=== PATIENT | female | born 1955 | race Caucasian/White ===

== ENCOUNTER 2016-09-27 10:06 | Emergency (ER) | payer MEDICARE, OTHER ==
[~2016-09-27] VITALS: Ht 152.4 cm; Wt 76.5 kg
[~2016-09-27 10:06] MED LIST: ALBU8.5H3 INH; ASPI1TAB30 PO; BECL8.7A IH; CALC600T11 PO; FEXO180T61 PO; GABA300C16 PO; HYDR-762 PO; HYDR-906 PO; IBUP-1542 PO; MET25 PO; OMEP20CA16 PO; ONDA4TAB35 PO; ONDA4TAB8 PO
[2016-09-27 10:17] VITALS: Ht 152.4 cm; Wt 76.5 kg
--- NOTE | 2016-09-27 11:59 | ERD ---
ER Documentation Chief Complaint Date/Time DATE: 09/27/16 TIME: 11:56 Chief Complaint PT with VB X 2 days and VICKERS X 2 weeks. HPI Patient is a 61-year-old female with a past medical history of arthritis who presents to the ED with 2 days of vaginal bleeding and headache for 3 weeks. She states that her headache is something she has experienced in the past, it is not a new onset headache. She states that the pain comes and goes and it is not the worst headache of her life. She denies blurry vision or difficulty hearing. She states that she has had multiple surgeries on both of her ears. She denies neck pain or neck stiffness. She denies fever or chills. She denies abdominal pain, nausea, vomiting or diarrhea. She also states that she has had left-sided pelvic pain for 2 days, on Tuesday and Tuesday with no pain or no bleeding today. She states that she has had her uterus and a one side of her ovaries removed, 24 years ago. She states that she has not had vaginal bleeding. She denies dysuria. No other complaints. ROS All systems reviewed and are negative except as per history of present illness. Medications Home Meds Active Scripts Nitrofurantoin Monohyd Macrocr* (Macrobid*) 100 Mg Capsr, 100 MG PO BID for 14 Days, CAP Prov:MARCEL GARNER PA-C 09/27/16 Aspirin/Acetaminophen/Caffeine (Excedrin Migraine Caplet) 1 Each Tablet, 1 EACH PO TID, #30 TAB Prov:MARCELINO JACOME PA-C 03/08/16 Ondansetron Hcl* (Zofran* ODT) 4 mg -ODT Tab.disper, 4 MG PO Q6H Y for NAUSEA, # 10 TAB Prov:SHAMEKA BENJAMIN MD 12/01/15 Hydrocodone Bit-Acetaminophen ([place]) 5-325 Mg Tablet, 1 TAB PO Q6 Y for PAIN, # 10 TAB Prov:SHAMEKA BENJAMIN MD 12/01/15 Hydrocodone Bit-Acetaminophen* ([place]*) 10-325 Mg Tablet, 1 TAB PO Q6 Y for PAIN , #12 TAB Prov:LISA DELGADO MD 11/25/15 Fexofenadine Hcl* ([place]*) 180 Mg Tablet, 180 MG PO DAILY, #30 TAB Prov:AMRIT SLATER MD 10/27/15 Ondansetron Hcl* (Zofran*) 4 Mg Tablet, 4 MG PO Q6H for NAUSEA AND/OR VOMITING, #30 TAB Prov:GRAY LOREDO 04/15/15 Reported Medications Calcium Carbonate* (Calcium Carbonate*) 600 MG Ca Tab, 600 MG PO DAILY, TAB 04/15/15 Albuterol Sulfate* (Proair HFA*) 8.5 Gm Hfa.aer.ad, 2 PUFF INH Q4H Y for WHEEZING AND SOB, INH 04/15/15 Methotrexate* (Methotrexate*) 2.5 Mg Tab, 15 MG PO every 7 days, TAB 04/15/15 Omeprazole* (Omeprazole*) 20 Mg Capsule.dr, 20 MG PO DAILY, CAP 04/15/15 Gabapentin* (Gabapentin*) 300 Mg Capsule, 300 MG PO TID, CAP 04/15/15 Beclomethasone Dip* (Qvar 40*) 7.3 Gm Inha, 7.3 GM IH Y 01/13/12 Ibuprofen* (Ibuprofen*) 600 Mg Tablet, 600 MG PO Y 01/13/12 Allergies Allergies: Coded Allergies: ranitidine (Verified Allergy, Unknown, 03/08/16) PMhx/Soc History of Surgery: Yes (ALESSANDRA HIP REP.TAHBSO, APPENDECTOMY, gallbladder, eye surgery, ear surgery) Anesthesia Reaction: No Hx Neurological Disorder: No Hx Respiratory Disorders: No Hx Cardiac Disorders: No Hx Psychiatric Problems: No Hx Miscellaneous Medical Probl: No Hx Alcohol Use: No Hx Substance Use: No Hx Tobacco Use: No FmHx Family History: No coronary disease, No diabetes, No other Physical Exam Vitals Vital Signs Date Time Temp Pulse Resp B/P Pulse Ox O2 Delivery O2 Flow Rate FiO2 09/27/16 13:18 77 18 139/72 97 Room Air 09/27/16 10:17 97.4 86 20 120/62 100 Physical Exam GENERAL: Well-developed, well-nourished female. Appears in no acute distress. HEAD: Normocephalic, atraumatic. EYES: Pupils are equally reactive bilaterally. EOMs grossly intact. No conjunctival erythema. ENT: Moist mucous membranes. No uvula deviation. No kissing tonsils. No exudates. NECK: Supple. No lymphadenopathy or thyromegaly. No meningismus. negative kernig. negative brudinski. LUNG: Clear to auscultation bilaterally. No rhonchi, wheezing, rales or coarse breath sounds. HEART: Regular rate and rhythm. No murmurs, rubs or gallops. ABDOMEN: No scars, ecchymosis or rashes noted. Soft, nontender, and nondistended. Positive bowel sounds in all four quadrants. No rebound tenderness , no guarding. (-) McBurneys point tenderness. No CVA tenderness. Slight left- sided pelvic pain. BACK: No midline tenderness. Extremities: Equal pulses bilaterally. No peripheral clubbing, cyanosis or edema. No unilateral leg swelling. NEUROLOGIC: Alert and oriented. Moving all four extremities. 5/5 strength in all extremities. Normal speech. Steady gait. Cranial nerves II through XII intact. SKIN: Normal color. Warm and dry. No rashes or lesions. Capillary refill < 2 seconds Result Diagram: 09/27/16 1215 09/27/16 1215 Results 24 hrs Laboratory Tests Test 09/27/16 12:15 09/27/16 12:50 White Blood Count 6.410^3/ul Red Blood Count 4.1910^6/ul Hemoglobin 11.2g/dl Hematocrit 35.9% Mean Corpuscular Volume 85.7fl Mean Corpuscular Hemoglobin 26.7pg Mean Corpuscular Hemoglobin Concent 31.2g/dl Red Cell Distribution Width 13.6% Platelet Count 76513^3/UL Mean Platelet Volume 10.4fl Neutrophils % 29.8% Lymphocytes % 47.6% Monocytes % 12.9% Eosinophils % 8.9% Basophils % 0.5% Nucleated Red Blood Cells % 0.0/100WBC Neutrophils # 1.910^3/ul Lymphocytes # 3.110^3/ul Monocytes # 0.810^3/ul Eosinophils # 0.610^3/ul Basophils # 0.010^3/ul Nucleated Red Blood Cells # 0.010^3/ul Sodium Level 143mmol/L Potassium Level 4.0mmol/L Chloride Level 109mmol/L Carbon Dioxide Level 23mmol/L Anion Gap 15 Blood Urea Nitrogen 11mg/dl Creatinine 0.64mg/dl Glucose Level 97mg/dl Calcium Level 9.1mg/dl Total Bilirubin 0.1mg/dl Direct Bilirubin 0.00mg/dl Indirect Bilirubin 0.1mg/dl Aspartate Amino Transf (AST/SGOT) 34IU/L Alanine Aminotransferase (ALT/SGPT) 42IU/L Alkaline Phosphatase 117IU/L Total Protein 8.0g/dl Albumin 4.2g/dl Globulin 3.80g/dl Albumin/Globulin Ratio 1.10 Lipase 46U/L Bedside Urine pH (LAB) 7.0 Bedside Urine Protein (LAB) Negative Bedside Urine Glucose (UA) Negative Bedside Urine Ketones (LAB) Negative Bedside Urine Blood 1+ Bedside Urine Nitrite (LAB) Negative Bedside Urine Leukocyte Esterase (L 1+ Current Medications Medications (Trade) Dose Ordered Sig/Tayla Route PRN Reason Start Time Stop Time Status Last Admin Dose Admin Acetaminophen (Tylenol Tab) 650 mg ONCE ONCE PO 09/27/16 12:00 09/27/16 12:01 DC 09/27/16 12:09 Procedures/MDM ER COURSE: I kept the patient and/or family informed of laboratory and diagnostic imaging results throughout the emergency room course. EKG, MONITORS, & DIAGNOSTIC IMAGING: [place] [id number] Radiology Main Line: [phone] DIAGNOSTIC IMAGING REPORT Patient: TRACY GOMES : 1955 Age: 61 Sex: F MR #: [id number] DOS: 09/27/16 1140 Ordering MD: MARCEL GARNER PA-C Location: [facility] Room/Bed: PROCEDURE: US Pelvis. CLINICAL INDICATION: pelvic pain , vaginal bleeding TECHNIQUE: Multiple sonographic images of the pelvis were obtained utilizing a transabdominal and endovaginal technique. The images were reviewed on a PACS workstation. COMPARISON: None. FINDINGS: The patient is status post hysterectomy. The ovaries were not visualized. There is no evidence for free fluid. RPTAT: AA IMPRESSION: Status post hysterectomy. Ovaries not visualized. No free fluid. .Franky Leblanc MD, MD Date Time Electronically viewed and signed by .Franky Leblanc MD, on 09/27/2016 12: 17 .S/ CC: MARCEL GARNER PA-C LAB INTERPRETATION: CBC showed no evidence of systemic infection or severe anemia. CMP showed no evidence of electrolyte abnormalities, severe acidosis, alkalosis, renal failure , or liver disease. Lipase showed no evidence of acute pancreatitis. UA showed no evidence of leukocytes, nitrites or hematuria. Urine test was negative. MEDICAL DECISION MAKING: This is a 61-year-old female who presents with headache for 3 weeks and 2 days of vaginal bleeding. Vital signs were reviewed. Patient is afebrile. Patient is not hypoxic. Patient is not toxic or ill-appearing. I do not think further workup regarding patient's headache were necessary at this time as patient does have a chronic headaches and states that this is not the worst headache of her life and stated that the pain came on gradually and comes and goes and is usually relieved with Excedrin. Tylenol was given here in the ED. Patient tolerated with no adverse reaction. Patient did not have any vaginal bleeding today in the ED and was hemodynamically stable. Her ultrasound is read by radiologist was unremarkable. Low suspicion for ectopic , , molar , endometriosis, PID, cervicitis, septic , molar , HELLP syndrome, I did not think a CAT scan was necessary at this time as patient did not have any abdominal pain and was stable. Advised patient to follow-up with a hourly sales staff for further evaluation. DISCHARGE: At this time, patient is stable for discharge and outpatient management with no new complaints during the ER course. Patient was sent home with copy of all imaging and laboratory studies and a name of hourly sales staff.. Patient will be discharged home with instructions to recheck for new or worsening symptoms such as fever, nausea, weakness, LOC and to follow up with primary care in the next 1 -2 days. Patient was advised to return to the ER for any new or worsening symptoms. Plan was discussed and patient and/or family understands and agrees. Home instructions were given. Departure Diagnosis: Primary Impression: Headache Headache type: unspecified Headache chronicity pattern: chronic headache Intractability: not intractable Qualified Code: R51 - Chronic nonintractable headache, unspecified headache type Additional Impression: Vaginal bleeding Condition: Stable MARCEL GARNER PA-C September 27, 2016 11:59
[2016-09-27] MEDS ORDERED: ACETAMINOPHEN 325 MG TAB PO ONE (12:00)
--- NOTE | 2016-09-27 12:18 | RADRPT ---
PROCEDURE: US Pelvis. CLINICAL INDICATION: pelvic pain , vaginal bleeding TECHNIQUE: Multiple sonographic images of the pelvis were obtained utilizing a transabdominal and endovaginal technique. The images were reviewed on a PACS workstation. COMPARISON: None. FINDINGS: The patient is status post hysterectomy. The ovaries were not visualized. There is no evidence for free fluid. RPTAT: AA IMPRESSION: Status post hysterectomy. Ovaries not visualized. No free fluid. .Franky Leblanc MD, MD Date Time Electronically viewed and signed by .Franky Leblanc MD, MD on 09/27/2016 12:17 .S/
[2016-09-27 12:25] LABS: ADD SCAN DIFF NO
[2016-09-27 12:30] LABS: BASOPHILS % 0.5 % (0.0-2.0); EOSINOPHILS # 0.6 10^3/ul (0.0-0.5); EOSINOPHILS % 8.9 % (0.0-7.0); HEMATOCRIT 35.9 % (37.0-47.0); HEMOGLOBIN 11.2 g/dl (12.0-16.0); LYMPHOCYTES # 3.1 10^3/ul (0.8-2.9); LYMPHOCYTES % 47.6 % (15.0-51.0); MEAN CORPUSCULAR HEMOGLOBIN 26.7 pg (29.0-33.0); MEAN CORPUSCULAR HGB CONC 31.2 g/dl (32.0-37.0); MEAN CORPUSCULAR VOLUME 85.7 fl (82.0-101.0); MEAN PLATELET VOLUME 10.4 fl (7.4-10.4); MONOCYTE # 0.8 10^3/ul (0.3-0.9); MONOCYTES % 12.9 % (0.0-11.0); NEUTROPHIL # 1.9 10^3/ul (1.6-7.5); NEUTROPHILS % 29.8 % (39.0-77.0); PLATELET COUNT 249 10^3/UL (140-415); RED BLOOD COUNT 4.19 10^6/ul (4.20-5.40); RED CELL DISTRIBUTION WIDTH 13.6 % (11.5-14.5); WHITE BLOOD COUNT 6.4 10^3/ul (4.8-10.8)
[2016-09-27 12:46] LABS: ALBUMIN 4.2 g/dl (3.3-4.9)
[2016-09-27 12:48] LABS: URINE BLOOD (Dip) POC 1+ (NEGATIVE)
[2016-09-27 12:49] LABS: ALBUMIN/GLOBULIN RATIO 1.1; BILIRUBIN,INDIRECT 0.1 mg/dl (0-1.1); BILIRUBIN,TOTAL 0.1 mg/dl (0.2-1.3); CALCIUM 9.1 mg/dl (8.4-10.2); CREATININE 0.64 mg/dl (0.44-1.00)
[2016-09-27] MEDS ORDERED: NITR-58 PO (13:08)
[2016-09-27 13:18] VITALS: BP 139/72; PULSE 77; RESP 18
== END 2016-09-27 13:19 | disposition home or self-care (01) ==
LOC: FTE 10:06
DX: R51 Headache (principal); Z79.82 Long term (current) use of aspirin
CPT/HCPCS: 76830; 76856; 80053; 81003; 83690; 85025

== ENCOUNTER 2016-11-19 10:03 | Emergency (ER) | payer MEDICARE, OTHER ==
[~2016-11-19] VITALS: Ht 160 cm; Wt 75.5 kg
[~2016-11-19 10:03] MED LIST changes: +NITR-58 PO
[2016-11-19 10:14] VITALS: Ht 160 cm; Wt 75.5 kg
--- NOTE | 2016-11-19 12:18 | RADRPT ---
PROCEDURE: XR Hand. CLINICAL INDICATION: hand pain s/p fall TECHNIQUE: AP and lateral views of the right hand were obtained. COMPARISON: No prior studies are available for comparison. FINDINGS: The films are underpenetrated. This cyst or erosion is suspected slightly blunting the right ulnar styloid process. No acute bony fracture is identified. Slight changes in contour along the proximal portions of the right third and fourth metacarpal bones are believed to be normal. IMPRESSION: 1. No acute bony fracture is identified. 2. Bone cyst or erosive changes involving the right ulnar styloid process. RPTAT:AAJJ Physician Ida Date Time Electronically viewed and signed by Physician Ida on 11/19/2016 12:18 KELVIN/
--- NOTE | 2016-11-19 12:19 | RADRPT ---
PROCEDURE: XR Wrist. CLINICAL INDICATION: Trauma. TECHNIQUE: AP, lateral, navicular and oblique views of the right wrist were performed. COMPARISON: No prior studies are available for comparison. FINDINGS: There is some erosive changes involving the right ulnar styloid process. The carpal bones and metac arpal bones appear intact. There is a slight contour change noted at the level of the proximal meta diaphysis of the right third metacarpal bone. This is likely normal. If there is point tenderness at this site additional coned-down views may be indicated. IMPRESSION: 1. No acute bony fracture is identified. 2. Erosive changes involving the right ulnar styloid process. RPTAT:AAJJ Physician Ida Date Time Electronically viewed and signed by Ki Campbell Physician on 11/19/2016 12:19 KELVIN/
--- NOTE | 2016-11-19 12:20 | RADRPT ---
PROCEDURE: XR Forearm. CLINICAL INDICATION: Pain after a fall. TECHNIQUE: AP and lateral views of the right forearm were obtained. COMPARISON: No prior studies are available for comparison. FINDINGS: The soft tissues and bony elements are unremarkable. No acute fracture or dislocation is identified . IMPRESSION: 1. No evidence of a fracture involving the right radius or ulna. RPTAT:AAJJ Physician Ida Date Time Electronically viewed and signed by Ki Campbell Physician on 11/19/2016 12:20 KELVIN/
[2016-11-19] MEDS ORDERED: IBUP-1542 PO (12:51)
--- NOTE | 2016-11-19 13:02 | ERD ---
ER Documentation Chief Complaint Date/Time DATE: 11/19/16 TIME: 12:54 Chief Complaint 12/23 r. arm pain x 1 week after fall HPI Patient is a 61-year-old female past medical history of osteoarthritis who presents to the emergency department with right wrist and hand pain after a ground-level fall 1 week ago. Patient denies any dizziness or syncopal feelings prior to fall injury. Patient states that she was walking the street when she apparently had flulike injury. Patient denies any radiation of the pain up into her shoulder. Patient denies any chest pain, shortness of breath, left upper extremity pain, diaphoresis, nausea, vomiting, headache or blurry vision. Patient is speaking in full sentences. Patient is able to ambulate without any difficulty. She is right-hand dominant. Patient does report history of previous wrist fracture. ROS All systems reviewed and are negative except as per history of present illness. Medications Home Meds Active Scripts Ibuprofen* (Motrin*) 600 Mg Tab, 600 MG PO Q6, #20 TAB Prov:HARRY GIL PA-C 11/19/16 Nitrofurantoin Monohyd Macrocr* (Macrobid*) 100 Mg Capsr, 100 MG PO BID for 14 Days, CAP Prov:MARCEL GARNER PA-C 09/27/16 Aspirin/Acetaminophen/Caffeine (Excedrin Migraine Caplet) 1 Each Tablet, 1 EACH PO TID, #30 TAB Prov:MARCELINO JACOME PA-C 03/08/16 Ondansetron Hcl* (Zofran* ODT) 4 mg -ODT Tab.disper, 4 MG PO Q6H Y for NAUSEA, # 10 TAB Prov:SHAMEKA BENJAMIN MD 12/01/15 Hydrocodone Bit-Acetaminophen ([place]) 5-325 Mg Tablet, 1 TAB PO Q6 Y for PAIN, # 10 TAB Prov:SHAMEKA BENJAMIN MD 12/01/15 Hydrocodone Bit-Acetaminophen* ([place]*) 10-325 Mg Tablet, 1 TAB PO Q6 Y for PAIN , #12 TAB Prov:LISA DELGADO MD 11/25/15 Fexofenadine Hcl* ([place]*) 180 Mg Tablet, 180 MG PO DAILY, #30 TAB Prov:AMRIT SLATER MD 10/27/15 Ondansetron Hcl* (Zofran*) 4 Mg Tablet, 4 MG PO Q6H for NAUSEA AND/OR VOMITING, #30 TAB Prov:GRAY LOREDO 04/15/15 Reported Medications Calcium Carbonate* (Calcium Carbonate*) 600 MG Ca Tab, 600 MG PO DAILY, TAB 04/15/15 Albuterol Sulfate* (Proair HFA*) 8.5 Gm Hfa.aer.ad, 2 PUFF INH Q4H Y for WHEEZING AND SOB, INH 04/15/15 Methotrexate* (Methotrexate*) 2.5 Mg Tab, 15 MG PO every 7 days, TAB 04/15/15 Omeprazole* (Omeprazole*) 20 Mg Capsule.dr, 20 MG PO DAILY, CAP 04/15/15 Gabapentin* (Gabapentin*) 300 Mg Capsule, 300 MG PO TID, CAP 04/15/15 Beclomethasone Dip* (Qvar 40*) 7.3 Gm Inha, 7.3 GM IH Y 01/13/12 Ibuprofen* (Ibuprofen*) 600 Mg Tablet, 600 MG PO Y 01/13/12 Allergies Allergies: Coded Allergies: ranitidine (Verified Allergy, Unknown, 11/19/16) PMhx/Soc History of Surgery: Yes (ALESSANDRA HIP REP.TAHBSO, APPENDECTOMY, gallbladder, eye surgery, ear surgery) Anesthesia Reaction: No Hx Neurological Disorder: No Hx Respiratory Disorders: No Hx Cardiac Disorders: No Hx Psychiatric Problems: No Hx Miscellaneous Medical Probl: Yes (Arthritis) Hx Alcohol Use: No Hx Substance Use: No Hx Tobacco Use: No Smoking Status: Never smoker FmHx Family History: No diabetes Physical Exam Vitals Vital Signs Date Time Temp Pulse Resp B/P Pulse Ox O2 Delivery O2 Flow Rate FiO2 11/19/16 13:19 98.5 70 18 110/64 98 Room Air 11/19/16 10:14 98.5 80 18 108/64 98 Physical Exam GENERAL: Well-developed, well-nourished female. Appears in no acute distress. Speaking in full sentences HEAD: Normocephalic, atraumatic. EYES: Pupils are equally reactive bilaterally. EOMs grossly intact. No conjunctival erythema. ENT: Moist mucous membranes. No uvula deviation. No kissing tonsils. NECK: Supple. No meningismus. Normal range of motion of the neck. LUNG: Clear to auscultation bilaterally. No rhonchi, wheezing, rales or coarse breath sounds. HEART: Regular rate and rhythm. No murmurs, rubs or gallops. EXTREMITIES: Equal pulses bilaterally. No peripheral clubbing, cyanosis or edema. No unilateral leg swelling. NEUROLOGIC: Alert and oriented. Moving all four extremities without any difficulty. Normal speech. Steady gait. SKIN: Normal color. Warm and dry. No rashes or lesions. RIGHT WRIST: No erythema, ecchymosis or swelling. Skin intact. Full range of motion of the wrist and elbow. Patient able to pronate and supinate without any difficulty. Nontender to palpation of the elbow, proximal radius and ulna. Tender to palpation of the mid forearm, radial wrist. +Finger deformities consistent OA. Sensation intact to light touch. Neurovascularly intact. (Able to give thumbs up, make an ok sign, cross digits 2 and 3, thumb to pinky opposition. 2+ RP.) No snuffbox tenderness. Results 24 hrs Current Medications Medications (Trade) Dose Ordered Sig/Tayla Route PRN Reason Start Time Stop Time Status Last Admin Dose Admin Ibuprofen (Motrin) 600 mg ONCE ONCE PO 11/19/16 13:30 11/19/16 13:31 DC 11/19/16 13:10 Procedures/MDM ED COURSE: The patient was stable throughout ED course. I kept the patient and/or family informed of laboratory and diagnostic imaging results throughout the ED course. DIAGNOSTIC IMAGING: Read by radiologist. DIAGNOSTIC IMAGING REPORT Patient: TRACY GOMES : 1955 Age: 61 Sex: F MR #: [id number] DOS: 11/19/16 1110 Ordering MD: HARRY GIL PA-C Location: [facility] Room/Bed: PROCEDURE: XR Hand. CLINICAL INDICATION: hand pain s/p fall TECHNIQUE: AP and lateral views of the right hand were obtained. COMPARISON: No prior studies are available for comparison. FINDINGS: The films are underpenetrated. This cyst or erosion is suspected slightly blunting the right ulnar styloid process. No acute bony fracture is identified. Slight changes in contour along the proximal portions of the right third and fourth metacarpal bones are believed to be normal. IMPRESSION: 1. No acute bony fracture is identified. 2. Bone cyst or erosive changes involving the right ulnar styloid process. RPTAT:AAJJ Ki Campbell, Physician Date Time Electronically viewed and signed by Ki Campbell Physician on 11/19/2016 12:18 JM/ CC: HARRY GIL PA-C Radiology Main Line: [phone] DIAGNOSTIC IMAGING REPORT Patient: TRACY GOMES : 1955 Age: 61 Sex: F MR #: [id number] DOS: 11/19/16 1106 Ordering MD: HARRY GIL PA-C Location: [facility] Room/Bed: PROCEDURE: XR Wrist. CLINICAL INDICATION: Trauma. TECHNIQUE: AP, lateral, navicular and oblique views of the right wrist were performed. COMPARISON: No prior studies are available for comparison. FINDINGS: There is some erosive changes involving the right ulnar styloid process. The carpal bones and metacarpal bones appear intact. There is a slight contour change noted at the level of the proximal metadiaphysis of the right third metacarpal bone. This is likely normal. If there is point tenderness at this site additional coned-down views may be indicated. IMPRESSION: 1. No acute bony fracture is identified. 2. Erosive changes involving the right ulnar styloid process. RPTAT:AAJJ Ki Campbell Physician Date Time Electronically viewed and signed by Ki Campbell Physician on 11/19/2016 12:19 KELVIN/ CC: HARRY GIL PA-C DIAGNOSTIC IMAGING REPORT Patient: TRACY GOEMS : 1955 Age: 61 Sex: F MR #: [id number] DOS: 11/19/16 1106 Ordering MD: HARRY GIL PA-C Location: [facility] Room/Bed: PROCEDURE: XR Forearm. CLINICAL INDICATION: Pain after a fall. TECHNIQUE: AP and lateral views of the right forearm were obtained. COMPARISON: No prior studies are available for comparison. FINDINGS: The soft tissues and bony elements are unremarkable. No acute fracture or dislocation is identified. IMPRESSION: 1. No evidence of a fracture involving the right radius or ulna. RPTAT:AAJJ Physician Ida Date Time Electronically viewed and signed by Physician Ida on 11/19/2016 12:20 JM/ CC: HARRY GIL PA-C PROCEDURES: SPLINT APPLICATION: The patient was verbally consented at bedside prior to splint application. Patient was explained the risks, benefits and alternatives to this procedure. The patient was neurovascularly intact prior to and status post application of the splint. The patient tolerated the procedure well with no complications. Splint type: velcro wrist splint Extremity: right wrist Indication: wrist sprain MEDICATIONS GIVEN: Ibuprofen MEDICAL DECISION MAKING: This is a 61-year-old female who presents with right wrist pain after a ground- level fall. Patient reports fusion injury. Vital signs were reviewed. Patient was afebrile. Xray imaging of the patient's right wrist was unremarkable except for erosive changes of the right ulnar styloid process.. Patient imaging of the right forearm was unremarkable. Given these findings, patient's presentation is most consistent with wrist sprain. Unable to rule out any ligament or tendon injuries at this time. I have a much lower clinical concern for dislocation, radius fracture, ulna fracture, nightstick fracture, carpal bone fracture, scaphoid fracture, septic joint, ligament tear,carpal tunnel syndrome, cubital tunnel syndrome, osteomyelitis, or compartment syndrome. She was placed in a Velcro wrist splint for comfort measures. PRESCRIPTIONS: Ibuprofen DISCHARGE: At this time, patient is stable for discharge and outpatient management. Patient provided with a copy of all imaging studies obtained today. RICE therapy and ROM exercises were advised to avoid stiffness. I have instructed the patient to follow-up with his/her primary care physician in 1-2 days. I have discussed with the patient the possibility of needing to see an field specialist for further workup and imaging if the pain persists. I have instructed the patient to promptly return to the ER for any new or worsening symptoms including increased pain, swelling, redness, warmth or fever. The patient and/or family expressed understanding of and agreement with this plan. All questions were answered. Home care instructions were provided. Departure Diagnosis: Primary Impression: Right wrist pain Condition: Stable Patient Instructions: Wrist Sprain Additional Instructions: Call your primary care doctor TOMORROW for an appointment during the next 1-2 days.See the doctor sooner or return here if your condition worsens before your appointment time. Unable to rule out any tendon or ligament injuries at this time. Patient was advised to follow-up with field specialist for further management of her pain. Patient may need an MRI on an outpatient basis if her pain persists. HARRY GIL PA-C Nov 19, 2016 13:02
[2016-11-19 13:19] VITALS: BP 110/64; PULSE 70; RESP 18; TEMP 98.5
[2016-11-19] MEDS ORDERED: IBUPROFEN 600 MG TAB PO ONE (13:30)
== END 2016-11-19 15:14 | disposition home or self-care (01) ==
LOC: FTE 10:03
DX: M25.531 Pain in right wrist (principal); Z79.82 Long term (current) use of aspirin; Z96.643 Presence of artificial hip joint, bilateral

== ENCOUNTER 2017-05-23 11:04 | Emergency (ER) | END 2017-05-23 15:33 | disposition home or self-care (01) ==

== ENCOUNTER 2017-06-03 14:29 | Emergency (ER) | END 2017-06-03 19:55 | disposition home or self-care (01) ==

== ENCOUNTER 2018-08-25 17:48 | Emergency (ER) | payer MEDICARE, OTHER ==
[~2018-08-25] VITALS: Ht 152.4 cm; Wt 72.0 kg
[~2018-08-25 17:48] MED LIST changes: -ALBU8.5H3 INH; +ALBU8.5H8 INH; +ALBU90AE INHALATION; -ASPI1TAB30 PO; +AZIT250T PO; -BECL8.7A IH; -CALC600T11 PO; +ETAN50PE SQ; -FEXO180T61 PO; +FLUT16SP17 NASAL; +FOLI-49 PO; -HYDR-762 PO; -HYDR-906 PO; -IBUP-1542 PO; -NITR-58 PO; +ONDA4TAB14 PO; -ONDA4TAB35 PO; -ONDA4TAB8 PO; +PRED20TA PO
[2018-08-25 17:52] VITALS: BP 177/91; PULSE 117; RESP 20; Ht 152.4 cm; Wt 72.0 kg
[2018-08-25] MEDS ORDERED: KETOROLAC 30 MG INJ IM STA (18:17)
[2018-08-25] MEDS ORDERED: HYDROCODONE/APAP (5/325) TAB PO ONE (18:30)
[2018-08-25] MEDS ORDERED: IBUP-1542 PO (19:25)
[2018-08-25] MEDS ORDERED: HYDR-4011 PO (19:25)
--- NOTE | 2018-08-25 19:29 | ERD ---
ER Documentation Chief Complaint Chief Complaint pt bib friend with c/o right ankle /hip pain s/p twisting it 2 hrs ago, HPI 63-year-old female tripped and fell today. She twisted her right foot and ankle. She has pain and swelling on the right fifth metatarsal area. She denies head injury, neck injury, weakness, deficits. She has a history of bilateral hip replacement greater than 10 years ago. Denies hip pain, back pain. ROS All systems reviewed and are negative except as per history of present illness. Medications Home Meds Active Scripts Ibuprofen* (Motrin*) 600 Mg Tab, 600 MG PO Q6, #30 TAB Prov:AMRIT SLATER MD 08/25/18 Hydrocodone/Acetaminophen ([place] 5-325 Tablet) 1 Each Tablet, 1 TAB PO Q6H PRN for PAIN, #14 TAB Prov:AMRIT SLATER MD 08/25/18 Prednisone* (Prednisone*) 20 Mg Tab, 60 MG PO DAILY for 4 Days, TAB Prov:DEVIN MADDOX DO 06/24/18 Albuterol Sulfate* (Proair HFA*) 8.5 Gm Hfa.aer.ad, 2 PUFF INH Q4, #1 INHALER Prov:DEVIN MADDOX DO 06/24/18 Azithromycin* (Zithromax*) 250 Mg Tablet, 250 MG PO .ZPACK DIRECTED, #6 TAB TAKE 500 MG (2 TABS) THE FIRST DAY THEN 250 MG (1 TAB) DAYS 2-5 Prov:DEVIN MADDOX DO 06/24/18 Ondansetron (Ondansetron Odt) 4 Mg Tab.rapdis, 4 MG PO Q6H PRN for NAUSEA AND/OR VOMITING, #10 TAB Prov:DEVIN MADDOX DO 06/24/18 Reported Medications Etanercept (Enbrel) 50 Mg/1 Ml Pen.injctr, 50 MG SQ Q SUN 06/24/18 Methotrexate* (Methotrexate*) 2.5 Mg Tab, 20 MG PO Q SUN, TAB 06/24/18 Omeprazole* (Omeprazole*) 20 Mg Capsule.dr, 20 MG PO DAILY, #30 CAP 06/24/18 Gabapentin* (Gabapentin*) 300 Mg Capsule, 300 MG PO TID, #90 CAP 06/24/18 Folic Acid* (Folic Acid*) 1 Mg Tablet, 1 MG PO DAILY, TAB 06/24/18 Albuterol Sulfate (Proair Respiclick) 90 Mcg Aer.pow.ba, 2 PUFFS INHALATION Q6, #1 BOTTLE 06/24/18 Fluticasone Propionate* (Fluticasone Propionate* Nasal) 50 Mcg/[place] - 16 Gm [place].susp, 1 SPRAY NASAL BID, #1 BOTTLE TO EACH NOSTRIL 06/24/18 Allergies Allergies: Coded Allergies: ranitidine (Verified Allergy, Unknown, 06/24/18) PMhx/Soc History of Surgery: Yes (LEFT EYE SX,APPENDECTOMY,CHOLECYSTECTOMY,HYSTERECTOMY) Anesthesia Reaction: No Hx Neurological Disorder: No Hx Respiratory Disorders: No Hx Cardiac Disorders: No Hx Psychiatric Problems: No Hx Miscellaneous Medical Probl: Yes (Arthritis) Hx Alcohol Use: No Hx Substance Use: No Hx Tobacco Use: No FmHx Family History: No diabetes, No coronary disease, No other Physical Exam Vitals Vital Signs Date Temp Pulse Resp B/P (MAP) Pulse Ox O2 O2 Flow FiO2 Time Delivery Rate 08/25/18 98.3 117 20 177/91 98 17:52 (119) Physical Exam Const: No acute distress Head: Atraumatic Eyes: Normal Conjunctiva ENT: Normal External Ears, Nose and Mouth. Neck: Full range of motion. No meningismus. Resp: Clear to auscultation bilaterally Cardio: Regular rate and rhythm, no murmurs Abd: Soft, non tender, non distended. Normal bowel sounds Skin: No petechiae or rashes Back: No midline or flank tenderness Ext: No cyanosis, or edema. Significant swelling and bruising of the right fifth metatarsal area. No restricted range of motion weakness. No bleeding warmth. Lacerations. Neur: Awake and alert Psych: Normal Mood and Affect Results 24 hrs Current Medications Medications Dose Sig/Tayla Start Time Status Last (Trade) Ordered Route PRN Stop Time Admin Dose Reason Admin Ketorolac 30 mg ONCE STAT 08/25/18 DC 08/25/18 Tromethamine IM 18:17 18:34 (Toradol) 08/25/18 18:18 1 tab ONCE ONCE 08/25/18 DC 08/25/18 Acetaminophen PO 18:30 18:33 / 08/25/18 18:31 Hydrocodone Bitart ([place] (5/325)) Procedures/MDM X-ray Ankle 3V Interpreted by me: Bones: No fracture Joints: No dislocation Foreign Body: None impression-normal right ankle expiration. Visible fifth metatarsal fracture. X-ray Foot 3V Interpreted by me: Bones: No fracture Joints: No dislocation Foreign body: None. Impression-displaced base of right fifth metatarsal fracture. She is placed in a right lower extremity walker boot. She is neurovascular intact of the boot. She was given [place] 5 mg and Toradol. Patient will have difficulty ablating due to her fracture and recommending a wheelchair. She will need orthopedic evaluation for displaced fifth metatarsal fracture. She has no signs of ischemia, deficits, infection. Patient was given a short course of [place], ibuprofen with recommendations for orthopedic follow- up. She was advised she may need authorization from primary doctor for orthopedist visit. Departure Diagnosis: Primary Impression: Fracture of foot Encounter type: initial encounter Fracture type: closed Laterality: right Qualified Codes: S92.901A - Unspecified fracture of right foot, initial encounter for closed fracture Condition: Stable Patient Instructions: Fracture, Foot Referrals: ENOC CISNEROS MD [facility] Hours: Mon-Fri 9:00 AM - 5:00 PM Additional Instructions: hay un fractura. Va al akers doctor/ specialista para mas evaluacon en el proximo semana. posiblemente necesita autorizado de akers doctor primario para specialista. Regresa para fiebre, o mas o nueva simptomas. AMRIT SLATER MD Aug 25, 2018 19:29
== END 2018-08-25 21:17 | disposition home or self-care (01) ==
LOC: FTE 17:48
DX: S92.351A Displaced fracture of fifth metatarsal bone, right foot, initial encounter for closed fracture (principal); X50.1XXA Overexertion from prolonged static or awkward postures, initial encounter; Y92.9 Unspecified place or not applicable; Z96.643 Presence of artificial hip joint, bilateral
CPT/HCPCS: 73610; 73630; 96372; 99284; J1885

== ENCOUNTER 2018-10-18 18:54 | Inpatient (IN) | payer MEDICARE, OTHER ==
[~2018-10-18] VITALS: Ht 160 cm; Wt 73.0 kg
[~2018-10-18 18:54] MED LIST changes: +HYDR-4011 PO; +IBUP-1542 PO
[2018-10-18 19:04] VITALS: Ht 160 cm; Wt 73.0 kg
[2018-10-18] MEDS ORDERED: ONDANSETRON 4 MG INJ IV STA (21:44)
[2018-10-18] MEDS ORDERED: KETOROLAC 15 MG INJ IV STA (21:44)
[2018-10-18] MEDS ORDERED: SOD CHLORIDE 0.9% 1,000 ML IV STA (21:44)
[2018-10-18] MEDS ORDERED: BELLADONNA/PHENOBARBITAL TAB PO STA (21:44)
[2018-10-18] MEDS ORDERED: LIDOCAINE/MYLANTA 40 ML BTL PO STA (21:44)
--- NOTE | 2018-10-18 21:51 | ERD ---
ER Documentation Chief Complaint Chief Complaint headache/dizzines since yesterday; worse today; nauseated; a/ox4, ambulotor HPI This is a 63-year-old woman with multiple complaints including sharp epigastric abdominal pain which is nonexertional nonradiating, nausea, dizziness, headache. She states she has had this abdominal pain in the past and does have a history of gastritis, but usually the pain is not as severe. She has had a fever for 1 day but denies URI symptoms, no cough, no shortness of breath, no chest pain, no blurry vision, no LOC, no dysuria, no complaints of neck pain or neck stiffness. Patient denies blood per rectum or melena. ROS All systems reviewed and are negative except as per history of present illness. Medications Home Meds Active Scripts Ibuprofen* (Motrin*) 600 Mg Tab, 600 MG PO Q6, #30 TAB Prov:AMRIT SLATER MD 08/25/18 Hydrocodone/Acetaminophen ([place] 5-325 Tablet) 1 Each Tablet, 1 TAB PO Q6H PRN for PAIN, #14 TAB Prov:AMRIT SLATER MD 08/25/18 Prednisone* (Prednisone*) 20 Mg Tab, 60 MG PO DAILY for 4 Days, TAB Prov:DEVIN MADDOX DO 06/24/18 Albuterol Sulfate* (Proair HFA*) 8.5 Gm Hfa.aer.ad, 2 PUFF INH Q4, #1 INHALER Prov:DEVIN MADDOX DO 06/24/18 Azithromycin* (Zithromax*) 250 Mg Tablet, 250 MG PO .[place] DIRECTED, #6 TAB TAKE 500 MG (2 TABS) THE FIRST DAY THEN 250 MG (1 TAB) DAYS 2-5 Prov:DEVIN MADDOX DO 06/24/18 Ondansetron (Ondansetron Odt) 4 Mg Tab.rapdis, 4 MG PO Q6H PRN for NAUSEA AND/OR VOMITING, #10 TAB Prov:DEVIN MADDOX DO 06/24/18 Reported Medications Etanercept (Enbrel) 50 Mg/1 Ml Pen.injctr, 50 MG SQ Q SUN 06/24/18 Methotrexate* (Methotrexate*) 2.5 Mg Tab, 20 MG PO Q SUN, TAB 06/24/18 Omeprazole* (Omeprazole*) 20 Mg Capsule.dr, 20 MG PO DAILY, #30 CAP 06/24/18 Gabapentin* (Gabapentin*) 300 Mg Capsule, 300 MG PO TID, #90 CAP 06/24/18 Folic Acid* (Folic Acid*) 1 Mg Tablet, 1 MG PO DAILY, TAB 06/24/18 Albuterol Sulfate (Proair Respiclick) 90 Mcg Aer.pow.ba, 2 PUFFS INHALATION Q6, #1 BOTTLE 06/24/18 Fluticasone Propionate* (Fluticasone Propionate* Nasal) 50 Mcg/[place] - 16 Gm [place].susp, 1 SPRAY NASAL BID, #1 BOTTLE TO EACH NOSTRIL 06/24/18 Allergies Allergies: Coded Allergies: ranitidine (Verified Allergy, Unknown, 06/24/18) PMhx/Soc Gastritis, hypertension History of Surgery: Yes (LEFT EYE SX,APPENDECTOMY,CHOLECYSTECTOMY,HYSTERECTOMY) Anesthesia Reaction: No Hx Neurological Disorder: No Hx Respiratory Disorders: No Hx Cardiac Disorders: No Hx Psychiatric Problems: No Hx Miscellaneous Medical Probl: Yes (Arthritis) Hx Alcohol Use: No Hx Substance Use: No Hx Tobacco Use: No Smoking Status: Never smoker FmHx Family History: No diabetes Physical Exam Vitals Vital Signs Date Temp Pulse Resp B/P (MAP) Pulse Ox O2 O2 Flow FiO2 Time Delivery Rate 10/18/18 102.1 101 20 114/70 100 Room Air 21:59 (85) 10/18/18 39.0 21:54 10/18/18 102.1 99 20 117/69 100 Room Air 21:26 (85) 10/18/18 102.1 108 20 134/68 100 19:04 (90) Physical Exam GENERAL: Well-developed, well-nourished, febrile HEENT: Moist mucous membranes, pink conjunctiva, no cervical spine tenderness or step-off deformities, no goiter, no jaundice or icterus, extraocular movements intact without pain. No submandibular induration, and no pharyngeal erythema NEURO: Alert and oriented 3, cranial nerves II through XII intact bilaterally, pupils equal round reactive to light, no focal deficits or facial asymmetry, sensation intact distally Strength 5/5 in upper and lower extremities bilaterally CARDIAC: Tachycardic and regular, no murmurs rubs or gallops LUNGS: Clear bilaterally no wheezing crackles or stridor ABDOMEN: Soft nontender, no guarding, no rigidity, no rebound, no psoas sign no obturator sign. Normoactive bowel sounds SKIN: Warm and dry to touch, no abrasions, contusions, or hematomas, no lacerations, no ecchymosis, no target lesions, and without ulcers EXTREMITIES: No clubbing cyanosis or edema, calves are bilaterally symmetrical, no Homans sign, no popliteal cord sign. Distal pulses equal and bilateral PSYCH: Normal affect without agitation or irritability Result Diagram: 10/18/18211910/18/182119 Results 24 hrs Laboratory Tests Test 10/18/18 21:20 White Blood Count 8.4 10^3/ul Red Blood Count 4.10 10^6/ul Hemoglobin 8.0 g/dl Hematocrit 28.5 % Mean Corpuscular Volume 69.5 fl Mean Corpuscular Hemoglobin 19.5 pg Mean Corpuscular Hemoglobin Concent 28.1 g/dl Red Cell Distribution Width 18.7 % Platelet Count 342 10^3/UL Mean Platelet Volume 11.0 fl Immature Granulocytes % 0.600 % Neutrophils % 79.3 % Lymphocytes % 11.6 % Monocytes % 6.8 % Eosinophils % 1.5 % Basophils % 0.2 % Nucleated Red Blood Cells % 0.0 /100WBC Immature Granulocytes # 0.050 10^3/ul Neutrophils # 6.7 10^3/ul Lymphocytes # 1.0 10^3/ul Monocytes # 0.6 10^3/ul Eosinophils # 0.1 10^3/ul Basophils # 0.0 10^3/ul Nucleated Red Blood Cells # 0.0 10^3/ul Urine Color YELLOW Urine Clarity CLEAR Urine pH 6.0 Urine Specific [place] 1.020 Urine Ketones NEGATIVE mg/dL Urine Nitrite NEGATIVE mg/dL Urine Bilirubin NEGATIVE mg/dL Urine Urobilinogen 1+ mg/dL Urine Leukocyte Esterase TRACE [place]/ul Urine Microscopic RBC 1 /HPF Urine Microscopic WBC 4 /HPF Urine Squamous Epithelial Cells FEW /HPF Urine Hemoglobin NEGATIVE mg/dL Urine Glucose NEGATIVE mg/dL Urine Total Protein NEGATIVE mg/dl Sodium Level 139 mmol/L Potassium Level 4.3 mmol/L Chloride Level 105 mmol/L Carbon Dioxide Level 22 mmol/L Anion Gap 12 Blood Urea Nitrogen 16 mg/dl Creatinine 0.69 mg/dl Est Glomerular Filtrat Rate mL/min > 60 mL/min Glucose Level 104 mg/dl Calcium Level 9.0 mg/dl Total Bilirubin 0.5 mg/dl Direct Bilirubin 0.00 mg/dl Indirect Bilirubin 0.5 mg/dl Aspartate Amino Transf (AST/SGOT) 63 IU/L Alanine Aminotransferase (ALT/SGPT) 32 IU/L Alkaline Phosphatase 77 IU/L Total Protein 8.4 g/dl Albumin 4.7 g/dl Globulin 3.70 g/dl Albumin/Globulin Ratio 1.27 Lipase 36 U/L Current Medications Medications Dose Sig/Tayla Start Time Status Last (Trade) Ordered Route PRN Stop Time Admin Dose Reason Admin Sodium 1,000 ml @ Q1H STAT 10/18/18 DC 10/18/18 Chloride 1,000 mls/hr IV 21:44 10/18/18 21:53 22:43 Ondansetron 4 mg ONCE STAT 10/18/18 DC 10/18/18 HCl (Zofran IV 21:44 10/18/18 21:53 Inj) 21:46 40 ml ONCE STAT 10/18/18 DC 10/18/18 Miscellaneous PO 21:44 10/18/18 21:53 Medication 21:46 (Gi Cocktail (2)) [place]/ 2 tab ONCE STAT 10/18/18 DC 10/18/18 Phenobarbital PO 21:44 10/18/18 21:53 () 21:46 Ketorolac 15 mg ONCE STAT 10/18/18 DC 10/18/18 Tromethamine IV 21:44 10/18/18 21:53 (Toradol) 21:46 Ceftriaxone 50 ml @ ONCE ONCE 10/18/18 DC Sodium 100 mls/hr IVPB 22:00 10/18/18 22:29 650 mg ONCE ONCE 10/18/18 DC 10/18/18 Acetaminophen PO 22:00 10/18/18 21:54 (Tylenol 22:05 Tab) 40 mg ONCE ONCE 10/18/18 DC Pantoprazole IV 23:00 10/18/18 (Protonix 23:01 Iv) Procedures/MDM IV line was established patient was placed on cardiac monitor technician rhythm strip revealed a sinus tachycardia at 110 bpm with upright P and T waves. Patient was febrile I administered 1 L normal saline IV, acetaminophen p.o. for fever, Zofran 4 mg IV, Toradol 15 mg IV for pain, GI cocktail p.o., ceftriaxone 1 g IV. Chest X-ray 1V Interpreted by me: Soft Tissue: No acute abnormalities Bones: No acute abnormalities Mediastinum/Cardiac Silhouette/Lungs: No acute abnormalities CT scan of the abdomen pelvis was performed,IMPRESSION: 1. Several mesenteric lymph nodes within the left lower abdomen and minimal mesenteric fat stranding, cannot exclude mesenteric panniculitis. 2. Status post cholecystectomy. 3. Status post appendectomy. 4. No evidence of bowel obstruction. Stool filled loops large bowel suggestive of constipation. 5. Mild atherosclerotic disease of the aorta. 6. No renal/ureteric calculi or obstructive uropathy. 7. Bilateral hip replacements. 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 Urinalysis is weakly positive and given her fever and generalized weakness I suspect acute urinary tract infection. CBC reveals anemia with a hemoglobin of 8, this is down from 10 4 months ago. Electrolytes are unremarkable, liver function tests normal I administered Protonix 40 mg IV for suspected upper gastrointestinal bleeding. Type and screen is also been ordered if hemoglobin falls she may require PRBC IV transfusion although this will be deferred to admitting team. Departure Diagnosis: Primary Impression: Anemia Anemia type: unspecified type Qualified Codes: D64.9 - Anemia, unspecified Additional Impressions: Fever Fever type: unspecified Qualified Codes: R50.9 - Fever, unspecified Gastritis, hemorrhagic Gastritis type: superficial Chronicity: acute Qualified Codes: K29.01 - Acute gastritis with bleeding Acute UTI Condition: BOBBI Hernandez MD Oct 18, 2018 21:51
[2018-10-18] MEDS ORDERED: ACETAMINOPHEN 325 MG TAB PO ONE (22:00)
[2018-10-18] MEDS ORDERED: CEFTRIAXONE 1 GM/50 ML (PMX) 50 ML IVPB ONE (22:00)
[2018-10-18] MEDS ORDERED: PANTOPRAZOLE 40 MG INJ IV ONE (23:00)
[2018-10-18] MEDS ORDERED: DOCUSATE SODIUM 100 MG CAP PO PRN (23:30)
[2018-10-18] MEDS ORDERED: LORAZEPAM 2 MG INJ IV PRN (23:30)
[2018-10-18] MEDS ORDERED: ACETAMINOPHEN 325 MG TAB PO PRN (23:30)
[2018-10-18] MEDS ORDERED: NACL 0.9% 3 ML SYG IV SCH (23:30)
[2018-10-18] MEDS ORDERED: MAGNESIUM HYDROXIDE 30ML CUP PO PRN (23:30)
[2018-10-18] MEDS ORDERED: MELO15TA30 PO (23:35)
[2018-10-19] MEDS: SOD CHLORIDE 0.45% 1,000 ML IV SCH ×2 (00:39→15:06)
--- NOTE | 2018-10-19 05:35 | HP ---
Date/Time of Note Date/Time of Note DATE: 10/19/18 TIME: 05:29 Assessment/Plan VTE Prophylaxis SCD applied (from Nsg): Yes Pharmacological prophylaxis: other Lines/Catheters IV Catheter Type (from Nrsg): [place] Assessment/Plan Hospital Course Assessment and plan: 63-year-old female with past medical history of arthritis, gastritis, who presents sharp epigastric abdominal pain, with fever and UTI. 1. Abdominal pain: Unclear if this is related to her UTI, she does have a history gastritis. Hemoglobin is also low at 8.0, but no signs of any bleeding per patient. -Give her pain control medications, low-dose IV fluids, check TSH, A1c, lipid panel -We will obtain stool occult test and GI consult for further assessment, patient may benefit from endoscopy and/or colonoscopy but we will discuss with GI team first 2. Fever and UTI: We will place patient on respiratory antibiotics, Tylenol. Beta fevers, follow final culture results 3. History of arthritis: Patient apparently takes methotrexate at home -Monitor for now, if symptoms worsen consider rheumatology consult 4. History of gastritis: See #1, also add PPI Result Diagram: 10/18/18211910/18/182119 Results 24hrs Laboratory Tests Test 10/18/18 21:20 10/18/18 22:59 10/19/18 01:30 White Blood Count 8.4 Red Blood Count 4.10 L Hemoglobin 8.0 #L Hematocrit 28.5 L Mean Corpuscular Volume 69.5 L Mean Corpuscular Hemoglobin 19.5 L Mean Corpuscular Hemoglobin Concent 28.1 L Red Cell Distribution Width 18.7 H Platelet Count 342 # Mean Platelet Volume 11.0 H Immature Granulocytes % 0.600 H Neutrophils % 79.3 H Lymphocytes % 11.6 L Monocytes % 6.8 Eosinophils % 1.5 Basophils % 0.2 Nucleated Red Blood Cells % 0.0 Immature Granulocytes # 0.050 H Neutrophils # 6.7 Lymphocytes # 1.0 Monocytes # 0.6 Eosinophils # 0.1 Basophils # 0.0 Nucleated Red Blood Cells # 0.0 Prothrombin Time 12.9 Prothrombin Time Ratio 1.0 INR International Normalized Ratio 0.96 Activated Partial Thromboplast Time 32.0 Urine Color YELLOW Urine Clarity CLEAR Urine pH 6.0 Urine Specific [place] 1.020 Urine Ketones NEGATIVE Urine Nitrite NEGATIVE Urine Bilirubin NEGATIVE Urine Urobilinogen 1+ H Urine Leukocyte Esterase TRACE A Urine Microscopic RBC 1 Urine Microscopic WBC 4 Urine Squamous Epithelial Cells FEW Urine Hemoglobin NEGATIVE Urine Glucose NEGATIVE Urine Total Protein NEGATIVE Sodium Level 139 Potassium Level 4.3 Chloride Level 105 Carbon Dioxide Level 22 Anion Gap 12 Blood Urea Nitrogen 16 Creatinine 0.69 Est Glomerular Filtrat Rate mL/min > 60 Glucose Level 104 Calcium Level 9.0 Total Bilirubin 0.5 Direct Bilirubin 0.00 Indirect Bilirubin 0.5 Aspartate Amino Transf (AST/SGOT) 63 H Alanine Aminotransferase (ALT/SGPT) 32 Alkaline Phosphatase 77 Total Protein 8.4 H Albumin 4.7 Globulin 3.70 H Albumin/Globulin Ratio 1.27 Lipase 36 Free Thyroxine 0.94 Lactic Acid Level 1.6 1.4 HPI/ROS Admit Date/Time Admit Date/Time Hx of Present Illness 63-year-old female with past medical history of arthritis, gastritis, who presents sharp epigastric abdominal pain. The symptoms have been going on for the last 24 hours, she describes it as sharper in nature than her prior gastritis. Denies any upper or lower GI bleeding, no nausea vomiting, fever chills, diarrhea constipation, chest pain or shortness of breath. When the patient came in she was found with a fever of 102, and her UA showed signs of UTI presently. PMH/Family/Social Past Medical History Medications Current Medications IV Flush (NS 3 ml) 3 ml PER PROTOCOL IV ; Start 10/18/18 at 23:30 Ondansetron HCl (Zofran Inj) 4 mg Q6H PRN IV NAUSEA/VOMITING; Start 10/18/18 at 23:30 Acetaminophen (Tylenol Tab) 650 mg Q6H PRN PO .PAIN 1-3 OR TEMP; Start 10/18/18 at 23:30 Acetaminophen/ Hydrocodone Bitart ([place] (5/325)) 1 tab Q6H PRN PO .MOD PAIN 4- 6; Start 10/18/18 at 23:30 Morphine Sulfate (morphine) 2 mg Q4H PRN IV .SEVERE PAIN 7-10; Start 10/18/18 at 23:30 Docusate Sodium (Colace) 100 mg Q12H PRN PO .CONSTIPATION; Start 10/18/18 at 23:30 Magnesium Hydroxide (Milk Of Mag) 30 ml DAILY PRN PO .CONSTIPATION; Start 10/18/18 at 23:30 Pantoprazole (Protonix Iv) 40 mg BID@0600,1800 IV ; Start 10/19/18 at 06:00 Sodium Chloride 1,000 ml @ 75 mls/hr [id number] IV Last administered on 10/19/18at 00:39; Admin Dose 75 MLS/HR; Start 10/18/18 at 23:27 Lorazepam (Ativan) 0.5 mg Q6H PRN IV ANXIETY; Start 10/18/18 at 23:30 Coded Allergies: ranitidine (Unverified Allergy, Unknown, 10/18/18) Past Surgical History Past Surgical Hx: other (Appendectomy, hysterectomy, cholecystectomy, left eye surgery) Social History Alcohol Use: none Smoking Status: Never smoker Drug Use: none Exam/Review of Systems Vital Signs Vitals Vital Signs Date Temp Pulse Resp B/P (MAP) Pulse Ox O2 O2 Flow FiO2 Time Delivery Rate 10/19/18 80 16 109/66 98 Room Air 04:50 (80) 10/19/18 102.1 03:01 Exam Exam GENERAL: lying in bed, no acute distress HEENT: Pupils equal, round, and reactive to light. EOMI. NECK: Supple LUNGS: Clear to auscultation bilaterally, no rales, wheezes or rhonchi. HEART: Regular rate and rhythm, no murmurs, clicks, rubs or gallops. ABDOMEN: Soft, NT, mild epigastric tenderness to palpation. Positive bowel sounds in all four quadrants. No rebound or guarding. EXTREMITIES: No lower extremity edema bilaterally NEURO: No focal deficits CHEMA FUENTES Oct 19, 2018 05:35
[2018-10-19] MEDS: morphine 2 MG INJ IV PRN ×4 (05:54→23:22)
[2018-10-19] MEDS: ONDANSETRON 4 MG INJ IV PRN ×4 (05:54→21:05)
[2018-10-19] MEDS: PANTOPRAZOLE 40 MG INJ IV SCH ×2 (05:54→17:49)
[2018-10-19] MEDS ORDERED: SOD CHLORIDE 0.9% 250 ML IV* ONE (09:40)
--- NOTE | 2018-10-19 12:58 | PN ---
Date/Time of Note Date/Time of Note DATE: 10/19/18 TIME: 12:56 Assessment/Plan VTE Prophylaxis SCD applied (from Nsg): Yes Pharmacological prophylaxis: NA/contraindicated Pharm contraindication: anticoag not tolerated Lines/Catheters IV Catheter Type (from Nrsg): Saline Lock Assessment/Plan Hospital Course SUBJECTIVE: Continues to complain of headache. OBJECTIVE: Physical Exam General: Adequately build 63 year-old female lying in bed in no apparent distress. HEENT: Normocephalic, atraumatic. Eyes: Anicteric sclerae, conjunctivae clear. ENT: Nasal septum midline, oral mucosa moist. Neck supple, no JVD noticed. Respiratory: Bilaterally diminished breath sounds. No use of accessory muscles of respiration. No adventitious breath sounds. Cardiovascular: S1, S2 heard. Regular rate and rhythm. Abdomen: Soft and nondistended. Diffuse tenderness. Bowel sounds positive in all 4 quadrants. Genitourinary: Deferred. Extremities: No cyanosis, no clubbing, no edema. Right foot immobilizer in place. Neurologic: Cranial nerves II through XII grossly intact. The patient is awake, alert, and oriented. Skin: Normal skin turgor. No skin rashes. Labs & Vitals per chart ASSESSMENT & PLAN 63-year-old female with past medical history of arthritis and gastritis, who came to the emergency room with chief complaint of abdominal pain, headache, and febrile illness with CT showing several mesenteric lymph node in the left lower abdomen with minimal mesenteric fat stranding, who was admitted to inpatient setting for further treatment and evaluation. 1. Abdominal pain with CT showing several mesenteric lymph nodes, ?mesenteric panniculitis. Gastroenterology consult has been obtained. Continue pain control. 2. Sepsis with underlying febrile illness, tachycardia, and tachypnea. Sepsis criteria: Tachycardia, febrile illness, tachypnea Infectious source: (suspect intra-abdominal source). Continue empiric antimicrobials. Pending araujo cultures. 3. Microcytic, hypochromic anemia. Transfuse blood products as needed. Continue PPI, provided the patient's underlying abdominal pain and history of gastric ulcers. Gastroenterology consult has been obtained. 4. Prediabetes. Hemoglobin A1c 6.0 Monitor glycemic trends. 5. History of arthritis. Continue pain control. 6. Fluids, electrolytes, and nutrition. N.p.o. except for medications. -IVFs. 7. DVT prophylaxis. Bilateral SCDs. 8. Plan. Continue PPI. Await gastroenterology evaluation. Continue empiric antimicrobials. The patient was seen in collaboration with Dr. Ruiz. Result Diagram: 10/19/18 0712 10/19/18 0533 Results 24hrs Laboratory Tests Test 10/18/18 21:20 10/18/18 22:59 10/19/18 01:30 10/19/18 05:33 White Blood Count 8.4 4.8 # Red Blood Count 4.10 L 3.43 L Hemoglobin 8.0 #L 6.8 *L Hematocrit 28.5 L 23.7 L Mean Corpuscular Volume 69.5 L 69.1 L Mean Corpuscular 19.5 L 19.8 L Hemoglobin Mean Corpuscular 28.1 L 28.7 L Hemoglobin Concent Red Cell Distribution 18.7 H 18.5 H Width Platelet Count 342 # 259 # Mean Platelet Volume 11.0 H 10.3 Immature Granulocytes % 0.600 H 0.400 Neutrophils % 79.3 H 52.8 Lymphocytes % 11.6 L 29.5 Monocytes % 6.8 12.3 H Eosinophils % 1.5 5.0 Basophils % 0.2 0.0 Nucleated Red Blood 0.0 0.0 Cells % Immature Granulocytes # 0.050 H 0.020 Neutrophils # 6.7 2.5 Lymphocytes # 1.0 1.4 Monocytes # 0.6 0.6 Eosinophils # 0.1 0.2 Basophils # 0.0 0.0 Nucleated Red Blood 0.0 0.0 Cells # Prothrombin Time 12.9 Prothrombin Time Ratio 1.0 INR International 0.96 Normalized Ratio Activated 32.0 Partial Thromboplast Time Urine Color YELLOW Urine Clarity CLEAR Urine pH 6.0 Urine Specific [place] 1.020 Urine Ketones NEGATIVE Urine Nitrite NEGATIVE Urine Bilirubin NEGATIVE Urine Urobilinogen 1+ H Urine Leukocyte Esterase TRACE A Urine Microscopic RBC 1 Urine Microscopic WBC 4 Urine Squamous FEW Epithelial Cells Urine Hemoglobin NEGATIVE Urine Glucose NEGATIVE Urine Total Protein NEGATIVE Sodium Level 139 141 Potassium Level 4.3 4.3 Chloride Level 105 110 Carbon Dioxide Level 22 24 Anion Gap 12 7 Blood Urea Nitrogen 16 11 Creatinine 0.69 0.72 Est Glomerular Filtrat > 60 > 60 Rate mL/min Glucose Level 104 101 Calcium Level 9.0 8.0 L Total Bilirubin 0.5 Direct Bilirubin 0.00 Indirect Bilirubin 0.5 Aspartate Amino 63 H Transf (AST/SGOT) Alanine 32 Aminotransferase (ALT/SG PT) Alkaline Phosphatase 77 Total Protein 8.4 H Albumin 4.7 Globulin 3.70 H Albumin/Globulin Ratio 1.27 Lipase 36 Free Thyroxine 0.94 Lactic Acid Level 1.6 1.4 Hemoglobin A1c 6.0 H Triglycerides Level 140 Cholesterol Level 144 LDL Cholesterol, 86 Calculated HDL Cholesterol 30 L Cholesterol/HDL Ratio 4.8 Thyroid Stimulating 2.570 Hormone (TSH) Test 10/19/18 07:12 Hemoglobin 6.7 *L Hematocrit 23.6 L Exam/Review of Systems Exam Vitals Vital Signs Date Temp Pulse Resp B/P (MAP) Pulse Ox O2 O2 Flow FiO2 Time Delivery Rate 10/19/18 80 14 125/60 98 Room Air 07:29 (81) 14 10/19/18 97.1 05:59 Results Results 24hrs Laboratory Tests Test 10/18/18 21:20 10/18/18 22:59 10/19/18 01:30 10/19/18 05:33 White Blood Count 8.4 4.8 # Red Blood Count 4.10 L 3.43 L Hemoglobin 8.0 #L 6.8 *L Hematocrit 28.5 L 23.7 L Mean Corpuscular Volume 69.5 L 69.1 L Mean Corpuscular 19.5 L 19.8 L Hemoglobin Mean Corpuscular 28.1 L 28.7 L Hemoglobin Concent Red Cell Distribution 18.7 H 18.5 H Width Platelet Count 342 # 259 # Mean Platelet Volume 11.0 H 10.3 Immature Granulocytes % 0.600 H 0.400 Neutrophils % 79.3 H 52.8 Lymphocytes % 11.6 L 29.5 Monocytes % 6.8 12.3 H Eosinophils % 1.5 5.0 Basophils % 0.2 0.0 Nucleated Red Blood 0.0 0.0 Cells % Immature Granulocytes # 0.050 H 0.020 Neutrophils # 6.7 2.5 Lymphocytes # 1.0 1.4 Monocytes # 0.6 0.6 Eosinophils # 0.1 0.2 Basophils # 0.0 0.0 Nucleated Red Blood 0.0 0.0 Cells # Prothrombin Time 12.9 Prothrombin Time Ratio 1.0 INR International 0.96 Normalized Ratio Activated 32.0 Partial Thromboplast Time Urine Color YELLOW Urine Clarity CLEAR Urine pH 6.0 Urine Specific [place] 1.020 Urine Ketones NEGATIVE Urine Nitrite NEGATIVE Urine Bilirubin NEGATIVE Urine Urobilinogen 1+ H Urine Leukocyte Esterase TRACE A Urine Microscopic RBC 1 Urine Microscopic WBC 4 Urine Squamous FEW Epithelial Cells Urine Hemoglobin NEGATIVE Urine Glucose NEGATIVE Urine Total Protein NEGATIVE Sodium Level 139 141 Potassium Level 4.3 4.3 Chloride Level 105 110 Carbon Dioxide Level 22 24 Anion Gap 12 7 Blood Urea Nitrogen 16 11 Creatinine 0.69 0.72 Est Glomerular Filtrat > 60 > 60 Rate mL/min Glucose Level 104 101 Calcium Level 9.0 8.0 L Total Bilirubin 0.5 Direct Bilirubin 0.00 Indirect Bilirubin 0.5 Aspartate Amino 63 H Transf (AST/SGOT) Alanine 32 Aminotransferase (ALT/SG PT) Alkaline Phosphatase 77 Total Protein 8.4 H Albumin 4.7 Globulin 3.70 H Albumin/Globulin Ratio 1.27 Lipase 36 Free Thyroxine 0.94 Lactic Acid Level 1.6 1.4 Hemoglobin A1c 6.0 H Triglycerides Level 140 Cholesterol Level 144 LDL Cholesterol, 86 Calculated HDL Cholesterol 30 L Cholesterol/HDL Ratio 4.8 Thyroid Stimulating 2.570 Hormone (TSH) Test 10/19/18 07:12 Hemoglobin 6.7 *L Hematocrit 23.6 L Medications Medication Current Medications IV Flush (NS 3 ml) 3 ml PER PROTOCOL IV ; Start 10/18/18 at 23:30 Ondansetron HCl (Zofran Inj) 4 mg Q6H PRN IV NAUSEA/VOMITING Last administered on 10/19/18at 10:28; Admin Dose 4 MG; Start 10/18/18 at 23:30 Acetaminophen (Tylenol Tab) 650 mg Q6H PRN PO .PAIN 1-3 OR TEMP; Start 10/18/18 at 23:30 Acetaminophen/ Hydrocodone Bitart ([place] (5/325)) 1 tab Q6H PRN PO .MOD PAIN 4- 6; Start 10/18/18 at 23:30 Morphine Sulfate (morphine) 2 mg Q4H PRN IV .SEVERE PAIN 7-10 Last administered on 10/19/18at 10:28; Admin Dose 2 MG; Start 10/18/18 at 23:30 Docusate Sodium (Colace) 100 mg Q12H PRN PO .CONSTIPATION; Start 10/18/18 at 23:30 Magnesium Hydroxide (Milk Of Mag) 30 ml DAILY PRN PO .CONSTIPATION; Start 10/18/18 at 23:30 Pantoprazole (Protonix Iv) 40 mg BID@0600,1800 IV Last administered on 10/19/18at 05:54; Admin Dose 40 MG; Start 10/19/18 at 06:00 Sodium Chloride 1,000 ml @ 75 mls/hr [id number] IV Last administered on 10/19/18at 00:39; Admin Dose 75 MLS/HR; Start 10/18/18 at 23:27 Lorazepam (Ativan) 0.5 mg Q6H PRN IV ANXIETY; Start 10/18/18 at 23:30 Ceftriaxone Sodium 50 ml @ 100 mls/hr Q24H IVPB ; Start 10/19/18 at 23:00 SORAIDA DEMPSEY NP Oct 19, 2018 12:58
--- NOTE | 2018-10-19 13:23 | CONS ---
Assessment/Plan Assessment/Plan Hospital Course (Demo Recall) Summary Assessment and Plan: Assessment: Microcytic anemia Epigastric pain UTI on antibiotics History of arthritis Recent fracture to right lower extremity brace in place Plan: Clear liquid diet today N.p.o. after 10/20/2018 at 0900 EGD/colonoscopy tomorrow Endoscopy - risks/benefits/alternatives/indications of procedure and sedation/anesthesia discussed with patient who states understanding and gives informed consent to proceed. Patient seen in collaboration with Dr. Chavez CC: KEITH CHAVEZ MD ; Consultation Date/Type/Reason Admit Date/Time Date of Consultation: Oct 19, 2018 Type of Consult GI Reason for Consultation Anemia, epigastric pain Date/Time of Note DATE: 10/19/18 TIME: 13:10 Hx of Present Illness This is a 63-year-old female past medical history of recent right lower extremity fracture, arthritis who presented to the hospital with complaints of blurry vision, headache, upper abdominal pain and persistent nausea x2 days with work-up patient has been diagnosed with UTI started on antibiotics. Additionally initial labs show hemoglobin of 8.0 with microcytic indices and a drop in hemoglobin noted this morning to 6.8. GIs been consulted for further evaluation. Patient is not aware of overt signs of GI bleed states she does not look at her stool therefore is unclear if she has a history of melena or h ematochezia. She does complain of epigastric pain worse with palpation. She notes an unintentional weight loss of about 5 to 10 pounds over the past 4 months. She previously had an upper endoscopy and colonoscopy in 2011. She is currently receiving a blood transfusion. Discussed with patient plan to monitor H/H transfuse as needed continue PPI therapy discussed plan for EGD colonoscopy tomorrow. I reviewed risk/benefits of both sedation and procedure patient verbalized understanding and is agreeable. Review of Systems: A 12 system, review was conducted and is negative except as noted in the HPI or here. Past Medical History Home Meds Active Scripts Ibuprofen* (Motrin*) 600 Mg Tab, 600 MG PO Q6, #30 TAB Prov:AMRIT SLATER MD 08/25/18 Hydrocodone/Acetaminophen ([place] 5-325 Tablet) 1 Each Tablet, 1 TAB PO Q6H PRN for PAIN, #14 TAB Prov:AMRIT SLATER MD 08/25/18 Prednisone* (Prednisone*) 20 Mg Tab, 60 MG PO DAILY for 4 Days, TAB Prov:DEVIN MADDOXShu DO 06/24/18 Albuterol Sulfate* (Proair HFA*) 8.5 Gm Hfa.aer.ad, 2 PUFF INH Q4, #1 INHALER Prov:FELIPE MADDOXJENNY Tarango DO 06/24/18 Azithromycin* (Zithromax*) 250 Mg Tablet, 250 MG PO .WILEY DIRECTED, #6 TAB TAKE 500 MG (2 TABS) THE FIRST DAY THEN 250 MG (1 TAB) DAYS 2-5 Prov:FELIPE MADDOXJENNY Tarango DO 06/24/18 Ondansetron (Ondansetron Odt) 4 Mg Tab.rapdis, 4 MG PO Q6H PRN for NAUSEA AND/OR VOMITING, #10 TAB Prov:DAVIDWALTERFELIPE MANZOJENNY Tarango DO 06/24/18 Reported Medications Meloxicam* (Mobic*) 15 Mg Tablet, 15 MG PO DAILY for 30 Days, #30 10/18/18 Etanercept (Enbrel) 50 Mg/1 Ml Pen.injctr, 50 MG SQ Q SUN 06/24/18 Methotrexate* (Methotrexate*) 2.5 Mg Tab, 20 MG PO Q SUN, TAB 06/24/18 Omeprazole* (Omeprazole*) 20 Mg Capsule.dr, 20 MG PO DAILY, #30 CAP 06/24/18 Gabapentin* (Gabapentin*) 300 Mg Capsule, 300 MG PO TID, #90 CAP 06/24/18 Folic Acid* (Folic Acid*) 1 Mg Tablet, 1 MG PO DAILY, TAB 06/24/18 Albuterol Sulfate (Proair Respiclick) 90 Mcg Aer.pow.ba, 2 PUFFS INHALATION Q6, #1 BOTTLE 06/24/18 Fluticasone Propionate* (Fluticasone Propionate* Nasal) 50 Mcg/Gove - 16 Gm Gove.susp, 1 SPRAY NASAL BID, #1 BOTTLE TO EACH NOSTRIL 06/24/18 Medications Current Medications IV Flush (NS 3 ml) 3 ml PER PROTOCOL IV ; Start 10/18/18 at 23:30 Ondansetron HCl (Zofran Inj) 4 mg Q6H PRN IV NAUSEA/VOMITING Last administered on 10/19/18at 10:28; Admin Dose 4 MG; Start 10/18/18 at 23:30 Acetaminophen (Tylenol Tab) 650 mg Q6H PRN PO .PAIN 1-3 OR TEMP; Start 10/18/18 at 23:30 Acetaminophen/ Hydrocodone Bitart ([place] (5/325)) 1 tab Q6H PRN PO .MOD PAIN 4- 6; Start 10/18/18 at 23:30 Morphine Sulfate (morphine) 2 mg Q4H PRN IV .SEVERE PAIN 7-10 Last administered on 10/19/18at 10:28; Admin Dose 2 MG; Start 10/18/18 at 23:30 Docusate Sodium (Colace) 100 mg Q12H PRN PO .CONSTIPATION; Start 10/18/18 at 23:30 Magnesium Hydroxide (Milk Of Mag) 30 ml DAILY PRN PO .CONSTIPATION; Start 10/18/18 at 23:30 Pantoprazole (Protonix Iv) 40 mg BID@0600,1800 IV Last administered on 10/19/18at 05:54; Admin Dose 40 MG; Start 10/19/18 at 06:00 Sodium Chloride 1,000 ml @ 75 mls/hr [id number] IV Last administered on 10/19/18at 00:39; Admin Dose 75 MLS/HR; Start 10/18/18 at 23:27 Lorazepam (Ativan) 0.5 mg Q6H PRN IV ANXIETY; Start 10/18/18 at 23:30 Ceftriaxone Sodium 50 ml @ 100 mls/hr Q24H IVPB ; Start 10/19/18 at 23:00 Allergies: Coded Allergies: ranitidine (Unverified Allergy, Unknown, 10/18/18) Past Surgical History Past Surgical Hx: other (Appendectomy, hysterectomy, cholecystectomy, left eye surgery) Social History Alcohol Use: none Smoking Status: Never smoker Drug Use: none Exam/Review of Systems Exam Vitals Vital Signs Date Temp Pulse Resp B/P (MAP) Pulse Ox O2 O2 Flow FiO2 Time Delivery Rate 10/19/18 80 14 125/60 98 Room Air 07:29 (81) 14 10/19/18 97.1 05:59 Exam PHYSICAL EXAMINATION: GENERAL: Well developed, well nourished, alert & oriented x 3, in no acute distress SKIN: No lesions HEAD: Normocephalic, atraumatic, no tenderness. EYES: Pupils equal reactive to light and accommodation, no discharge. EARS/NOSE AND THROAT: Ears normal, nose normal. NECK: Supple, no masses. CHEST: Inspection within normal limits. CARDIOVASCULAR: Heart: Regular rate and rhythm, no murmurs, gallops or rubs RESPIRATORY: Lungs clear to auscultation and percussion, no wheezing, no rubs GASTROINTESTINAL AND LIVER: Abdomen: Soft, non tenderness, non-distended, no hernias, no masses, no organomegaly, no ascites, no guarding, no rebound tenderness, normoactive bowel sounds. Rectal: Deferred. EXTREMITIES: No cyanosis, clubbing or edema. brace to right lower extremity Results Result Diagram: 10/19/18 0712 10/19/18 0533 Results 24hrs Laboratory Tests Test 10/18/18 21:20 10/18/18 22:59 10/19/18 01:30 10/19/18 05:33 White Blood Count 8.4 4.8 # Red Blood Count 4.10 L 3.43 L Hemoglobin 8.0 #L 6.8 *L Hematocrit 28.5 L 23.7 L Mean Corpuscular Volume 69.5 L 69.1 L Mean Corpuscular 19.5 L 19.8 L Hemoglobin Mean Corpuscular 28.1 L 28.7 L Hemoglobin Concent Red Cell Distribution 18.7 H 18.5 H Width Platelet Count 342 # 259 # Mean Platelet Volume 11.0 H 10.3 Immature Granulocytes % 0.600 H 0.400 Neutrophils % 79.3 H 52.8 Lymphocytes % 11.6 L 29.5 Monocytes % 6.8 12.3 H Eosinophils % 1.5 5.0 Basophils % 0.2 0.0 Nucleated Red Blood 0.0 0.0 Cells % Immature Granulocytes # 0.050 H 0.020 Neutrophils # 6.7 2.5 Lymphocytes # 1.0 1.4 Monocytes # 0.6 0.6 Eosinophils # 0.1 0.2 Basophils # 0.0 0.0 Nucleated Red Blood 0.0 0.0 Cells # Prothrombin Time 12.9 Prothrombin Time Ratio 1.0 INR International 0.96 Normalized Ratio Activated 32.0 Partial Thromboplast Time Urine Color YELLOW Urine Clarity CLEAR Urine pH 6.0 Urine Specific [place] 1.020 Urine Ketones NEGATIVE Urine Nitrite NEGATIVE Urine Bilirubin NEGATIVE Urine Urobilinogen 1+ H Urine Leukocyte Esterase TRACE A Urine Microscopic RBC 1 Urine Microscopic WBC 4 Urine Squamous FEW Epithelial Cells Urine Hemoglobin NEGATIVE Urine Glucose NEGATIVE Urine Total Protein NEGATIVE Sodium Level 139 141 Potassium Level 4.3 4.3 Chloride Level 105 110 Carbon Dioxide Level 22 24 Anion Gap 12 7 Blood Urea Nitrogen 16 11 Creatinine 0.69 0.72 Est Glomerular Filtrat > 60 > 60 Rate mL/min Glucose Level 104 101 Calcium Level 9.0 8.0 L Total Bilirubin 0.5 Direct Bilirubin 0.00 Indirect Bilirubin 0.5 Aspartate Amino 63 H Transf (AST/SGOT) Alanine 32 Aminotransferase (ALT/SG PT) Alkaline Phosphatase 77 Total Protein 8.4 H Albumin 4.7 Globulin 3.70 H Albumin/Globulin Ratio 1.27 Lipase 36 Free Thyroxine 0.94 Lactic Acid Level 1.6 1.4 Hemoglobin A1c 6.0 H Triglycerides Level 140 Cholesterol Level 144 LDL Cholesterol, 86 Calculated HDL Cholesterol 30 L Cholesterol/HDL Ratio 4.8 Thyroid Stimulating 2.570 Hormone (TSH) Test 10/19/18 07:12 Hemoglobin 6.7 *L Hematocrit 23.6 L Medications Medication Current Medications IV Flush (NS 3 ml) 3 ml PER PROTOCOL IV ; Start 10/18/18 at 23:30 Ondansetron HCl (Zofran Inj) 4 mg Q6H PRN IV NAUSEA/VOMITING Last administered on 10/19/18at 10:28; Admin Dose 4 MG; Start 10/18/18 at 23:30 Acetaminophen (Tylenol Tab) 650 mg Q6H PRN PO .PAIN 1-3 OR TEMP; Start 10/18/18 at 23:30 Acetaminophen/ Hydrocodone Bitart ([place] (5/325)) 1 tab Q6H PRN PO .MOD PAIN 4- 6; Start 10/18/18 at 23:30 Morphine Sulfate (morphine) 2 mg Q4H PRN IV .SEVERE PAIN 7-10 Last administered on 10/19/18at 10:28; Admin Dose 2 MG; Start 10/18/18 at 23:30 Docusate Sodium (Colace) 100 mg Q12H PRN PO .CONSTIPATION; Start 10/18/18 at 2 3:30 Magnesium Hydroxide (Milk Of Mag) 30 ml DAILY PRN PO .CONSTIPATION; Start 10/18/18 at 23:30 Pantoprazole (Protonix Iv) 40 mg BID@0600,1800 IV Last administered on 10/19/18at 05:54; Admin Dose 40 MG; Start 10/19/18 at 06:00 Sodium Chloride 1,000 ml @ 75 mls/hr [id number] IV Last administered on 10/19/18at 00:39; Admin Dose 75 MLS/HR; Start 10/18/18 at 23:27 Lorazepam (Ativan) 0.5 mg Q6H PRN IV ANXIETY; Start 10/18/18 at 23:30 Ceftriaxone Sodium 50 ml @ 100 mls/hr Q24H IVPB ; Start 10/19/18 at 23:00 JOHNSON BENSON Oct 19, 2018 13:23
[2018-10-19] MEDS ORDERED: BISACODYL (EC) 5 MG TAB PO ONE (13:30)
[2018-10-19 14:51] VITALS: PULSE 83
[2018-10-19 15:07] VITALS: BP 127/58; PULSE 88; RESP 16
[2018-10-19 16:00] VITALS: PULSE 86
[2018-10-19] MEDS ORDERED: MAGNESIUM CITRATE 300 ML BTL PO ONE (17:30)
--- NOTE | 2018-10-19 17:53 | PREAC ---
Date/Time of Note Date/Time of Note DATE: 10/19/18 TIME: 17:52 Anesthesia Eval and Record Evaluation Time Pre-Procedure Interview DATE: 10/19/18 TIME: 17:52 Age 63 Sex female NPO: 8 hrs Preoperative diagnosis abdominal pain Planned procedure EGD / Colonoscopy Past Medical History Past Medical History: Includes Heme: Anemia Surgery & Anesthesia Issues No known issue Meds Anticoagulation: No Beta Caleb within 24 hr: No Reason Beta Caleb not given: Pt. not on B-Caleb Active Scripts Ibuprofen* (Motrin*) 600 Mg Tab, 600 MG PO Q6, #30 TAB Prov:AMRIT SLATER MD 08/25/18 Hydrocodone/Acetaminophen ([place] 5-325 Tablet) 1 Each Tablet, 1 TAB PO Q6H PRN for PAIN, #14 TAB Prov:AMRIT SLATER MD 08/25/18 Prednisone* (Prednisone*) 20 Mg Tab, 60 MG PO DAILY for 4 Days, TAB Prov:DEVIN MADDOX DO 06/24/18 Albuterol Sulfate* (Proair HFA*) 8.5 Gm Hfa.aer.ad, 2 PUFF INH Q4, #1 INHALER Prov:DEVIN MADDOX DO 06/24/18 Azithromycin* (Zithromax*) 250 Mg Tablet, 250 MG PO .ZPACK DIRECTED, #6 TAB TAKE 500 MG (2 TABS) THE FIRST DAY THEN 250 MG (1 TAB) DAYS 2-5 Prov:DEVIN MADDOX DO 06/24/18 Ondansetron (Ondansetron Odt) 4 Mg Tab.rapdis, 4 MG PO Q6H PRN for NAUSEA AND/OR VOMITING, #10 TAB Prov:DEVIN MADDOX DO 06/24/18 Reported Medications Meloxicam* (Mobic*) 15 Mg Tablet, 15 MG PO DAILY for 30 Days, #30 10/18/18 Etanercept (Enbrel) 50 Mg/1 Ml Pen.injctr, 50 MG SQ Q SUN 06/24/18 Methotrexate* (Methotrexate*) 2.5 Mg Tab, 20 MG PO Q SUN, TAB 06/24/18 Omeprazole* (Omeprazole*) 20 Mg Capsule.dr, 20 MG PO DAILY, #30 CAP 06/24/18 Gabapentin* (Gabapentin*) 300 Mg Capsule, 300 MG PO TID, #90 CAP 06/24/18 Folic Acid* (Folic Acid*) 1 Mg Tablet, 1 MG PO DAILY, TAB 06/24/18 Albuterol Sulfate (Proair Respiclick) 90 Mcg Aer.pow.ba, 2 PUFFS INHALATION Q6, #1 BOTTLE 06/24/18 Fluticasone Propionate* (Fluticasone Propionate* Nasal) 50 Mcg/[place] - 16 Gm [place].susp, 1 SPRAY NASAL BID, #1 BOTTLE TO EACH NOSTRIL 06/24/18 Current Medications IV Flush (NS 3 ml) 3 ml PER PROTOCOL IV ; Start 10/18/18 at 23:30 Ondansetron HCl (Zofran Inj) 4 mg Q6H PRN IV NAUSEA/VOMITING Last administered on 10/19/18at 10:28; Admin Dose 4 MG; Start 10/18/18 at 23:30 Acetaminophen (Tylenol Tab) 650 mg Q6H PRN PO .PAIN 1-3 OR TEMP; Start 10/18/18 at 23:30 Acetaminophen/ Hydrocodone Bitart ([place] (5/325)) 1 tab Q6H PRN PO .MOD PAIN 4- 6; Start 10/18/18 at 23:30 Morphine Sulfate (morphine) 2 mg Q4H PRN IV .SEVERE PAIN 7-10 Last administered on 10/19/18at 10:28; Admin Dose 2 MG; Start 10/18/18 at 23:30 Docusate Sodium (Colace) 100 mg Q12H PRN PO .CONSTIPATION; Start 10/18/18 at 23:30 Magnesium Hydroxide (Milk Of Mag) 30 ml DAILY PRN PO .CONSTIPATION; Start 10/18/18 at 23:30 Pantoprazole (Protonix Iv) 40 mg BID@0600,1800 IV Last administered on 10/19/18at 05:54; Admin Dose 40 MG; Start 10/19/18 at 06:00 Sodium Chloride 1,000 ml @ 75 mls/hr [id number] IV Last administered on 10/19/18at 15:06; Admin Dose 75 MLS/HR; Start 10/18/18 at 23:27 Lorazepam (Ativan) 0.5 mg Q6H PRN IV ANXIETY; Start 10/18/18 at 23:30 Ceftriaxone Sodium 50 ml @ 100 mls/hr Q24H IVPB ; Start 10/19/18 at 23:00 Polyethylene Glycol (Miralax) 119 gm ONCE ONCE PO ; Start 10/19/18 at 18:30; Stop 10/19/18 at 18:31 Polyethylene Glycol (Miralax) 119 gm 2ND DOSE (GI PREP) ONCE PO ; Start 10/20/18 at 06:00; Stop 10/20/18 at 06:01 Bisacodyl (Dulcolax) 10 mg 2ND DOSE (GI PREP) ONCE PO ; Start 10/20/18 at 08:00; Stop 10/20/18 at 08:01 Meds reviewed: Yes Allergies Coded Allergies: ranitidine (Unverified Allergy, Unknown, 10/18/18) Allergies Reviewed: Yes Labs/Studies Labs Reviewed: Reviewed by anesthesiologist (Currently at 1750 pt is getting blood ) Result Diagram: 10/19/18 0712 10/19/18 0533 Laboratory Tests 10/19/18 05:33 10/19/18 07:12 Blood Bank Test 10/18/18 22:59 Antibody Screen NEGATIVE Blood Product Summary Counts Blood Type O POSITIVE Crossmatch Red Blood Cells test: N/A Studies: CXR (. Bilateral chronic lung changes. No evidence of acute cardiopulmonary disease.) Pre-procedure Exam Last vitals Vital Signs Date Temp Pulse Resp B/P (MAP) Pulse Ox O2 O2 Flow FiO2 Time Delivery Rate 10/19/18 86 16:00 10/19/18 98.9 16 127/58 97 Room Air 15:07 (81) Airway: Adequate mouth opening Mallampati: Mallampati II Teeth: Normal Lung: Normal Heart: Normal ASA Physical Status ASA physical status: 2 Emergency: None Planned Anesthetic General/MAC: MAC Pre-operative Attestations Prior to commencing anesthesia and surgery, the patient was re-evaluated, there was verification of: *The patient's identity *The results of appropriate recent lab work and preoperative vital signs *The above evaluation not changing prior to induction *Anesthetic plan, risk benefits, alternative and complications discussed with patient/family; questions answered; patient/family understands, accepts and wishes to proceed. YAA MCCONNELL Oct 19, 2018 17:53
[2018-10-19] MEDS ORDERED: POLYETHYLENE GLYCOL 3350 119 GM POWDER PO ONE (18:30)
[2018-10-19 20:00] VITALS: PULSE 94
[2018-10-19 20:19] VITALS: BP 126/65; PULSE 88; RESP 18
[2018-10-19] MEDS ORDERED: CEFTRIAXONE 1 GM/50 ML (PMX) 50 ML IVPB SCH (23:00)
[2018-10-20] VITALS (25 sets, daily range): BP systolic 103–145; BP diastolic 56–86; PULSE 68–88; RESP 12–19
[2018-10-20] MEDS: SOD CHLORIDE 0.45% 1,000 ML IV SCH ×2 (02:07→09:50)
[2018-10-20] MEDS: morphine 2 MG INJ IV PRN ×3 (04:32→21:10)
[2018-10-20] MEDS: PANTOPRAZOLE 40 MG INJ IV SCH ×2 (05:42→17:27)
[2018-10-20] MEDS ORDERED: POLYETHYLENE GLYCOL 3350 119 GM POWDER PO ONE (06:00)
[2018-10-20] MEDS: HYDROCODONE/APAP (5/325) TAB PO PRN (06:12)
[2018-10-20] MEDS ORDERED: BISACODYL (EC) 5 MG TAB PO ONE (08:00)
[2018-10-20] MEDS ORDERED: HYDROmorphONE 1 MG/ML SYG IV PRN ×2 (15:30)
[2018-10-20] MEDS ORDERED: LABETALOL HCL 20MG INJ IV PRN (15:30)
[2018-10-20] MEDS ORDERED: EPHEDrine 25 MG/5 ML SYG IV PRN (15:30)
[2018-10-20] MEDS ORDERED: ONDANSETRON 4 MG INJ IV PRN ×2 (15:30→17:00)
[2018-10-20] MEDS ORDERED: FENTAnyl 50 MCG/ML VIAL IV PRN ×2 (15:30)
[2018-10-20] MEDS ORDERED: PROPOFOL 20 ML ONE (15:42)
--- NOTE | 2018-10-20 15:45 | HPN ---
Date/Time of Note Date/Time of Note DATE: 10/20/18 TIME: 15:15 Interval H&P Admission Note Pt. seen H&P reviewed: No system changes KEITH RAMEY MD Oct 20, 2018 15:45
--- NOTE | 2018-10-20 15:46 | PAC ---
Date/Time of Note Date/Time of Note DATE: 10/20/18 TIME: 15:45 Post-Anesthesia Notes Post-Anesthesia Note Last documented vital signs Vital Signs Date Temp Pulse Resp B/P (MAP) Pulse Ox O2 O2 Flow FiO2 Time Delivery Rate 10/20/18 98.3 78 12 132/79 97 Room Air 15:48 (96) Activity: WNL Respiratory function: WNL Cardiovascular function: WNL Mental status: Baseline Pain reasonably controlled: Yes Hydration appropriate: Yes Nausea/Vomiting absent: Yes JORDY COTE MD Oct 20, 2018 15:46
--- NOTE | 2018-10-20 16:55 | PN ---
Date/Time of Note Date/Time of Note DATE: 10/20/18 TIME: 16:54 Assessment/Plan VTE Prophylaxis Risk score (from [facility])>0 risk: 4 SCD applied (from [facility]): Yes SCD contraindicated: low risk/ambulating Pharmacological prophylaxis: LMWH Pharm contraindication: blood coag disorder Lines/Catheters IV Catheter Type (from [facility]): Peripheral IV Assessment/Plan Hospital Course A/P 1. Abdominal pain unknown etiology. Symptomatic gastritis? Stable observe 2. Symptomatic anemia? No active bleed at present. Stable observe 3. Grade of esophagitis, gastritis, hemorrhoids on EGD/colonoscopy. Follow-up on biopsy path continue PPI 4. Arthritis Subjective: Events noted Objective: Vital signs stable Physical lab Deferred patient GI lab Result Diagram: 10/20/18 0809 10/20/18 0809 Results 24hrs Laboratory Tests Test 10/20/18 08:09 White Blood Count 4.7 L Red Blood Count 4.39 # Hemoglobin 9.4 #L Hematocrit 32.0 #L Mean Corpuscular Volume 72.9 L Mean Corpuscular Hemoglobin 21.4 L Mean Corpuscular Hemoglobin Concent 29.4 L Red Cell Distribution Width 20.2 H Platelet Count 279 Mean Platelet Volume 9.8 Immature Granulocytes % 0.400 Neutrophils % 35.4 L Lymphocytes % 35.4 Monocytes % 17.2 H Eosinophils % 11.2 H Basophils % 0.4 Nucleated Red Blood Cells % 0.0 Immature Granulocytes # 0.020 Neutrophils # 1.7 Lymphocytes # 1.7 Monocytes # 0.8 Eosinophils # 0.5 Basophils # 0.0 Nucleated Red Blood Cells # 0.0 Sodium Level 142 Potassium Level 4.1 Chloride Level 110 Carbon Dioxide Level 23 Anion Gap 9 Blood Urea Nitrogen 8 Creatinine 0.72 Est Glomerular Filtrat Rate mL/min > 60 Glucose Level 92 Calcium Level 8.5 Phosphorus Level 3.5 Magnesium Level 2.3 Total Bilirubin 0.4 Direct Bilirubin 0.00 Indirect Bilirubin 0.4 Aspartate Amino Transf (AST/SGOT) 45 Alanine Aminotransferase (ALT/SGPT) 39 Alkaline Phosphatase 72 Total Protein 7.5 Albumin 3.8 Globulin 3.70 H Albumin/Globulin Ratio 1.02 Exam/Review of Systems Exam Vitals Vital Signs Date Temp Pulse Resp B/P (MAP) Pulse Ox O2 O2 Flow FiO2 Time Delivery Rate 10/20/18 98.7 69 18 145/82 98 Room Air 16:48 (103) Intake and Output 10/19/18 10/19/18 10/20/18 1515:00 23:00 07:00 IntakeIntake Total 150 ml 1650 ml BalanceBalance 150 ml 1650 ml Results Results 24hrs Laboratory Tests Test 10/20/18 08:09 White Blood Count 4.7 L Red Blood Count 4.39 # Hemoglobin 9.4 #L Hematocrit 32.0 #L Mean Corpuscular Volume 72.9 L Mean Corpuscular Hemoglobin 21.4 L Mean Corpuscular Hemoglobin Concent 29.4 L Red Cell Distribution Width 20.2 H Platelet Count 279 Mean Platelet Volume 9.8 Immature Granulocytes % 0.400 Neutrophils % 35.4 L Lymphocytes % 35.4 Monocytes % 17.2 H Eosinophils % 11.2 H Basophils % 0.4 Nucleated Red Blood Cells % 0.0 Immature Granulocytes # 0.020 Neutrophils # 1.7 Lymphocytes # 1.7 Monocytes # 0.8 Eosinophils # 0.5 Basophils # 0.0 Nucleated Red Blood Cells # 0.0 Sodium Level 142 Potassium Level 4.1 Chloride Level 110 Carbon Dioxide Level 23 Anion Gap 9 Blood Urea Nitrogen 8 Creatinine 0.72 Est Glomerular Filtrat Rate mL/min > 60 Glucose Level 92 Calcium Level 8.5 Phosphorus Level 3.5 Magnesium Level 2.3 Total Bilirubin 0.4 Direct Bilirubin 0.00 Indirect Bilirubin 0.4 Aspartate Amino Transf (AST/SGOT) 45 Alanine Aminotransferase (ALT/SGPT) 39 Alkaline Phosphatase 72 Total Protein 7.5 Albumin 3.8 Globulin 3.70 H Albumin/Globulin Ratio 1.02 Medications Medication Current Medications IV Flush (NS 3 ml) 3 ml PER PROTOCOL IV ; Start 10/18/18 at 23:30 Acetaminophen (Tylenol Tab) 650 mg Q6H PRN PO .PAIN 1-3 OR TEMP; Start 10/18/18 at 23:30 Acetaminophen/ Hydrocodone Bitart ([place] (5/325)) 1 tab Q6H PRN PO .MOD PAIN 4- 6 Last administered on 10/20/18at 06:12; Admin Dose 1 TAB; Start 10/18/18 at 23:30 Morphine Sulfate (morphine) 2 mg Q4H PRN IV .SEVERE PAIN 7-10 Last administered on 10/20/18at 14:28; Admin Dose 2 MG; Start 10/18/18 at 23:30 Docusate Sodium (Colace) 100 mg Q12H PRN PO .CONSTIPATION; Start 10/18/18 at 23:30 Magnesium Hydroxide (Milk Of Mag) 30 ml DAILY PRN PO .CONSTIPATION; Start 10/18/18 at 23:30 Pantoprazole (Protonix Iv) 40 mg BID@0600,1800 IV Last administered on 10/20/18at 05:42; Admin Dose 40 MG; Start 10/19/18 at 06:00 Sodium Chloride 1,000 ml @ 75 mls/hr [id number] IV Last administered on 10/20/18at 09:50; Admin Dose 75 MLS/HR; Start 10/18/18 at 23:27 Lorazepam (Ativan) 0.5 mg Q6H PRN IV ANXIETY; Start 10/18/18 at 23:30 Hydromorphone HCl (Dilaudid) 0.2 mg PACU PRN IV MILD PAIN 1-3; Start 10/20/18 at 15:30; Stop 10/20/18 at 21:00 Hydromorphone HCl (Dilaudid) 0.4 mg PACU PRN IV MOD PAIN 4-6; Start 10/20/18 at 15:30; Stop 10/20/18 at 21:00 Fentanyl (Sublimaze) 25 mcg PACU ORDER PRN IV MILD PAIN 1-3; Start 10/20/18 at 15:30; Stop 10/20/18 at 21:00 Fentanyl (Sublimaze) 50 mcg PACU ORDER PRN IV MOD PAIN 4-6; Start 10/20/18 at 15:30; Stop 10/20/18 at 21:00 Ondansetron HCl (Zofran Inj) 4 mg PACU ORDER PRN IV NAUSEA/VOMITING Last administered on 10/20/18at 16:06; Admin Dose 4 MG; Start 10/20/18 at 15:30; Stop 10/20/18 at 21:00 Labetalol HCl (Labetalol) 5 mg PACU ORDER PRN IV HIGH BLOOD PRESSURE; Start 10/20/18 at 15:30; Stop 10/20/18 at 21:00 Ephedrine Sulfate 5 mg PACU ORDER PRN IV BLOOD PRESSURE SUPPORT; Start 10/20/18 at 15:30; Stop 10/20/18 at 21:00 Ondansetron HCl (Zofran Inj) 4 mg Q4H PRN IV NAUSEA/VOMITING; Start 10/20/18 at 17:00 STELLA MADRID MD Oct 20, 2018 16:55
[2018-10-20] MEDS ORDERED: ACET/BUTAL/CAFF TAB PO ONE (22:00)
[2018-10-21] VITALS (11 sets, daily range): BP systolic 130–147; BP diastolic 67–80; PULSE 71–83; RESP 18–20
[2018-10-21] MEDS: PANTOPRAZOLE 40 MG INJ IV SCH ×2 (06:00→17:41)
--- NOTE | 2018-10-21 12:47 | PN ---
Date/Time of Note Date/Time of Note DATE: 10/21/18 TIME: 12:46 Assessment/Plan VTE Prophylaxis Risk score (from Ns)>0 risk: 4 SCD applied (from Ns): Yes SCD contraindicated: low risk/ambulating Pharmacological prophylaxis: NA/contraindicated Pharm contraindication: low risk/ambulating Lines/Catheters IV Catheter Type (from [facility] Saline Lock Assessment/Plan Hospital Course A/P 1. Abdominal pain unknown etiology. Symptomatic gastritis? Stable observe 2. Symptomatic anemia? No active bleed at present. Stable observe 3. Grade of esophagitis, gastritis, hemorrhoids on EGD/colonoscopy. Follow-up on biopsy path continue PPI 4. Arthritis; discontinue nonsteroidals 5. Hemorrhoids S: /7 events noted /8 no further nausea. No abdominal pain. Presently has a headache. No loss speech vision focal deficits. Mild pain no light sensitivity. Updated patient and family Objective: Vital signs stable Physical lab No pallor adenopathy carotid bruits. No sinus tenderness. Pupils intact reactive symmetrical Regular no mrg Clear Benign No edema Result Diagram: 10/21/18 0551 10/21/18 0551 Results 24hrs Laboratory Tests Test 10/21/18 05:51 White Blood Count 5.4 Red Blood Count 4.10 L Hemoglobin 8.9 L Hematocrit 29.7 L Mean Corpuscular Volume 72.4 L Mean Corpuscular Hemoglobin 21.7 L Mean Corpuscular Hemoglobin Concent 30.0 L Red Cell Distribution Width 19.7 H Platelet Count 265 Mean Platelet Volume 10.0 Immature Granulocytes % 0.200 Neutrophils % 37.3 L Lymphocytes % 33.6 Monocytes % 16.1 H Eosinophils % 12.4 H Basophils % 0.4 Nucleated Red Blood Cells % 0.0 Immature Granulocytes # 0.010 Neutrophils # 2.0 Lymphocytes # 1.8 Monocytes # 0.9 Eosinophils # 0.7 H Basophils # 0.0 Nucleated Red Blood Cells # 0.0 Sodium Level 141 Potassium Level 3.8 Chloride Level 109 Carbon Dioxide Level 24 Anion Gap 8 Blood Urea Nitrogen 9 Creatinine 0.73 Est Glomerular Filtrat Rate mL/min > 60 Glucose Level 94 Lactic Acid Level 0.8 Calcium Level 8.8 Total Bilirubin 0.3 Direct Bilirubin 0.00 Indirect Bilirubin 0.3 Aspartate Amino Transf (AST/SGOT) 37 Alanine Aminotransferase (ALT/SGPT) 41 Alkaline Phosphatase 78 Total Protein 6.7 Albumin 3.6 Globulin 3.10 Albumin/Globulin Ratio 1.16 Exam/Review of Systems Exam Vitals Vital Signs Date Temp Pulse Resp B/P (MAP) Pulse Ox O2 O2 Flow FiO2 Time Delivery Rate 10/21/18 97.9 83 18 147/76 100 Room Air 11:30 (99) Intake and Output 10/20/18 10/20/18 10/21/18 1515:00 23:00 07:00 IntakeIntake Total 1300 ml 700 ml BalanceBalance 1300 ml 700 ml Results Results 24hrs Laboratory Tests Test 10/21/18 05:51 White Blood Count 5.4 Red Blood Count 4.10 L Hemoglobin 8.9 L Hematocrit 29.7 L Mean Corpuscular Volume 72.4 L Mean Corpuscular Hemoglobin 21.7 L Mean Corpuscular Hemoglobin Concent 30.0 L Red Cell Distribution Width 19.7 H Platelet Count 265 Mean Platelet Volume 10.0 Immature Granulocytes % 0.200 Neutrophils % 37.3 L Lymphocytes % 33.6 Monocytes % 16.1 H Eosinophils % 12.4 H Basophils % 0.4 Nucleated Red Blood Cells % 0.0 Immature Granulocytes # 0.010 Neutrophils # 2.0 Lymphocytes # 1.8 Monocytes # 0.9 Eosinophils # 0.7 H Basophils # 0.0 Nucleated Red Blood Cells # 0.0 Sodium Level 141 Potassium Level 3.8 Chloride Level 109 Carbon Dioxide Level 24 Anion Gap 8 Blood Urea Nitrogen 9 Creatinine 0.73 Est Glomerular Filtrat Rate mL/min > 60 Glucose Level 94 Lactic Acid Level 0.8 Calcium Level 8.8 Total Bilirubin 0.3 Direct Bilirubin 0.00 Indirect Bilirubin 0.3 Aspartate Amino Transf (AST/SGOT) 37 Alanine Aminotransferase (ALT/SGPT) 41 Alkaline Phosphatase 78 Total Protein 6.7 Albumin 3.6 Globulin 3.10 Albumin/Globulin Ratio 1.16 Medications Medication Current Medications IV Flush (NS 3 ml) 3 ml PER PROTOCOL IV ; Start 10/18/18 at 23:30 Acetaminophen (Tylenol Tab) 650 mg Q6H PRN PO .PAIN 1-3 OR TEMP Last administered on 10/21/18at 10:31; Admin Dose 650 MG; Start 10/18/18 at 23:30 Acetaminophen/ Hydrocodone Bitart ([place] (5/325)) 1 tab Q6H PRN PO .MOD PAIN 4- 6 Last administered on 10/20/18 06:12; Admin Dose 1 TAB; Start 10/18/18 at 23:30 Morphine Sulfate (morphine) 2 mg Q4H PRN IV .SEVERE PAIN 7-10 Last administered on 10/20/18at 21:10; Admin Dose 2 MG; Start 10/18/18 at 23:30 Docusate Sodium (Colace) 100 mg Q12H PRN PO .CONSTIPATION; Start 10/18/18 at 23:30 Magnesium Hydroxide (Milk Of Mag) 30 ml DAILY PRN PO .CONSTIPATION; Start 10/18/18 at 23:30 Pantoprazole (Protonix Iv) 40 mg BID@0600,1800 IV Last administered on 10/20/18at 17:27; Admin Dose 40 MG; Start 10/19/18 at 06:00 Lorazepam (Ativan) 0.5 mg Q6H PRN IV ANXIETY; Start 10/18/18 at 23:30 Ondansetron HCl (Zofran Inj) 4 mg Q4H PRN IV NAUSEA/VOMITING; Start 10/20/18 at 17:00 STELLA MADRID MD Oct 21, 2018 12:47
[2018-10-21] MEDS: GABAPENTIN 300 MG CAP PO SCH ×2 (12:59→20:31)
[2018-10-21] MEDS: FOLIC ACID 1 MG TAB PO SCH (12:59)
[2018-10-21] MEDS: FLUTICASONE 0.05% 16 GM NAS SPRAY NASAL SCH ×3 (14:14→23:43)
--- NOTE | 2018-10-21 16:42 | PN ---
Date/Time of Note Date/Time of Note DATE: 10/21/18 TIME: 16:21 Assessment/Plan VTE Prophylaxis Risk score (from Nsg)>0 risk: 4 SCD applied (from [facility]): Yes SCD contraindicated: low risk/ambulating Pharmacological prophylaxis: NA/contraindicated Pharm contraindication: bleeding Lines/Catheters IV Catheter Type (from Nrs): Saline Lock Assessment/Plan Assessment/Plan Assessment: Microcytic anemia Epigastric pain Status post EGD 10/20/18 - severe erosive ulcerative esophagitis - rule out Bee's esophagus - rule out H Pylori - Biopsies obtained Colonoscopy 10/20/18 - Normal colonoscopy to cecum UTI on antibiotics History of arthritis Recent fracture to right lower extremity brace in place Plan: Follow up results of biopsies when available Regular diet Continue PPI protonix and carafate Monitor CBC Recommend repeat EGD in 6-8 weeks to evaluate healing of esophagitis. Patient seen in collaboration with Dr. Chavez Subjective: The patient denies epigastric or abdominal pain. She is tolerating regular diet without nausea or vomiting. Hemoglobin is stable. Discussed results of EGD and colonoscopy. Biopsies not yet available. Discussed treatment plan with PPI and carafate. This was discussed with patient's son who translated in Divehi. PHYSICAL EXAMINATION: GENERAL: Well developed, well nourished, alert & oriented x 3, in no acute distress SKIN: No lesions HEAD: Normocephalic, atraumatic, no tenderness. EYES: Pupils equal reactive to light and accommodation, no discharge. EARS/NOSE AND THROAT: Ears normal, nose normal. NECK: Supple, no masses. CHEST: Inspection within normal limits. CARDIOVASCULAR: Heart: Regular rate and rhythm, no murmurs, gallops or rubs RESPIRATORY: Lungs clear to auscultation and percussion, no wheezing, no rubs GASTROINTESTINAL AND LIVER: Abdomen: Soft, non tenderness, non-distended, no hernias, no masses, no organomegaly, no ascites, no guarding, no rebound tenderness, normoactive bowel sounds. Rectal: Deferred. EXTREMITIES: No cyanosis, clubbing or edema. brace to right lower extremity Result Diagram: 10/21/18 0551 10/21/18 0551 Results 24hrs Laboratory Tests Test 10/21/18 05:51 White Blood Count 5.4 Red Blood Count 4.10 L Hemoglobin 8.9 L Hematocrit 29.7 L Mean Corpuscular Volume 72.4 L Mean Corpuscular Hemoglobin 21.7 L Mean Corpuscular Hemoglobin Concent 30.0 L Red Cell Distribution Width 19.7 H Platelet Count 265 Mean Platelet Volume 10.0 Immature Granulocytes % 0.200 Neutrophils % 37.3 L Lymphocytes % 33.6 Monocytes % 16.1 H Eosinophils % 12.4 H Basophils % 0.4 Nucleated Red Blood Cells % 0.0 Immature Granulocytes # 0.010 Neutrophils # 2.0 Lymphocytes # 1.8 Monocytes # 0.9 Eosinophils # 0.7 H Basophils # 0.0 Nucleated Red Blood Cells # 0.0 Sodium Level 141 Potassium Level 3.8 Chloride Level 109 Carbon Dioxide Level 24 Anion Gap 8 Blood Urea Nitrogen 9 Creatinine 0.73 Est Glomerular Filtrat Rate mL/min > 60 Glucose Level 94 Lactic Acid Level 0.8 Calcium Level 8.8 Total Bilirubin 0.3 Direct Bilirubin 0.00 Indirect Bilirubin 0.3 Aspartate Amino Transf (AST/SGOT) 37 Alanine Aminotransferase (ALT/SGPT) 41 Alkaline Phosphatase 78 Total Protein 6.7 Albumin 3.6 Globulin 3.10 Albumin/Globulin Ratio 1.16 CC: KEITH CHAVEZ MD ; Exam/Review of Systems Exam Vitals Vital Signs Date Temp Pulse Resp B/P (MAP) Pulse Ox O2 O2 Flow FiO2 Time Delivery Rate 10/21/18 97.8 75 19 146/72 95 Room Air 15:25 (96) Intake and Output 10/20/18 10/20/18 10/21/18 1515:00 23:00 07:00 IntakeIntake Total 1300 ml 700 ml BalanceBalance 1300 ml 700 ml Results Results 24hrs Laboratory Tests Test 10/21/18 05:51 White Blood Count 5.4 Red Blood Count 4.10 L Hemoglobin 8.9 L Hematocrit 29.7 L Mean Corpuscular Volume 72.4 L Mean Corpuscular Hemoglobin 21.7 L Mean Corpuscular Hemoglobin Concent 30.0 L Red Cell Distribution Width 19.7 H Platelet Count 265 Mean Platelet Volume 10.0 Immature Granulocytes % 0.200 Neutrophils % 37.3 L Lymphocytes % 33.6 Monocytes % 16.1 H Eosinophils % 12.4 H Basophils % 0.4 Nucleated Red Blood Cells % 0.0 Immature Granulocytes # 0.010 Neutrophils # 2.0 Lymphocytes # 1.8 Monocytes # 0.9 Eosinophils # 0.7 H Basophils # 0.0 Nucleated Red Blood Cells # 0.0 Sodium Level 141 Potassium Level 3.8 Chloride Level 109 Carbon Dioxide Level 24 Anion Gap 8 Blood Urea Nitrogen 9 Creatinine 0.73 Est Glomerular Filtrat Rate mL/min > 60 Glucose Level 94 Lactic Acid Level 0.8 Calcium Level 8.8 Total Bilirubin 0.3 Direct Bilirubin 0.00 Indirect Bilirubin 0.3 Aspartate Amino Transf (AST/SGOT) 37 Alanine Aminotransferase (ALT/SGPT) 41 Alkaline Phosphatase 78 Total Protein 6.7 Albumin 3.6 Globulin 3.10 Albumin/Globulin Ratio 1.16 Medications Medication Current Medications IV Flush (NS 3 ml) 3 ml PER PROTOCOL IV ; Start 10/18/18 at 23:30 Acetaminophen (Tylenol Tab) 650 mg Q6H PRN PO .PAIN 1-3 OR TEMP Last administered on 10/21/18 10:31; Admin Dose 650 MG; Start 10/18/18 at 23:30 Acetaminophen/ Hydrocodone Bitart ([place] (5/325)) 1 tab Q6H PRN PO .MOD PAIN 4- 6 Last administered on 10/20/18 06:12; Admin Dose 1 TAB; Start 10/18/18 at 23:30 Morphine Sulfate (morphine) 2 mg Q4H PRN IV .SEVERE PAIN 7-10 Last administered on 10/20/18 21:10; Admin Dose 2 MG; Start 10/18/18 at 23:30 Docusate Sodium (Colace) 100 mg Q12H PRN PO .CONSTIPATION; Start 10/18/18 at 23: 30 Magnesium Hydroxide (Milk Of Mag) 30 ml DAILY PRN PO .CONSTIPATION; Start 10/18/18 at 23:30 Pantoprazole (Protonix Iv) 40 mg BID@0600,1800 IV Last administered on 10/20/18 17:27; Admin Dose 40 MG; Start 10/19/18 at 06:00 Lorazepam (Ativan) 0.5 mg Q6H PRN IV ANXIETY; Start 10/18/18 at 23:30 Ondansetron HCl (Zofran Inj) 4 mg Q4H PRN IV NAUSEA/VOMITING; Start 10/20/18 at 17:00 Fluticasone Propionate (Flonase 0.05% Nasal) 1 spray BID NASAL Last administered on 10/21/18 14:14; Admin Dose 1 SPRAY; Start 10/21/18 at 14:00 Folic Acid (Folic Acid) 1 mg DAILY PO Last administered on 10/21/18 12:59; Admin Dose 1 MG; Start 10/21/18 at 13:00 Gabapentin (Neurontin) 300 mg TID PO Last administered on 10/21/18at 12:59; Admin Dose 300 MG; Start 10/21/18 at 13:00 Methotrexate (Methotrexate) 20 mg Ybarra@0900 PO ; Start 10/22/18 at 09:00 OBI ARELLANO NP Oct 21, 2018 16:32
[2018-10-21] MEDS: SUCRALFATE (100 MG/ML) 10ML CUP PO SCH ×2 (17:41→20:31)
[2018-10-21] MEDS: HYDROCODONE/APAP (5/325) TAB PO PRN (23:44)
[2018-10-22] VITALS (10 sets, daily range): BP systolic 114–146; BP diastolic 56–81; PULSE 56–90; RESP 18–19
[2018-10-22] MEDS: morphine 2 MG INJ IV PRN (04:22)
[2018-10-22] MEDS: PANTOPRAZOLE 40 MG INJ IV SCH (06:48)
[2018-10-22] MEDS: SUCRALFATE (100 MG/ML) 10ML CUP PO SCH ×3 (08:22→17:00)
[2018-10-22] MEDS: GABAPENTIN 300 MG CAP PO SCH ×2 (08:22→12:48)
[2018-10-22] MEDS: FOLIC ACID 1 MG TAB PO SCH ×2 (08:22→08:25)
[2018-10-22] MEDS: FLUTICASONE 0.05% 16 GM NAS SPRAY NASAL SCH (08:22)
[2018-10-22] MEDS ORDERED: METHOTREXATE 2.5 MG TAB PO SCH (09:00)
[2018-10-22] MEDS ORDERED: SUMATRIPTAN 6 MG/0.5 ML INJ SC ONE (15:30)
--- NOTE | 2018-10-22 15:47 | PDOCDIS ---
Discharge Instructions CONDITION [id number] Patient Condition: [id number] Stable HOME CARE INSTRUCTIONS: [id number] Diet Instructions: [id number] Regular ACTIVITY: [id number] Activity Restrictions: [id number] Slowly Increase Activity Do not Drive FOLLOW UP/APPOINTMENTS Follow-up Plan appt PCP & Dr Chavez 1wk Referral to Neurology for Headaches STELLA MADRID MD Oct 22, 2018 15:47
--- NOTE | 2018-10-22 15:47 | DS ---
Date/Time of Note Date/Time of Note DATE: 10/22/18 TIME: 15:39 Discharge Summary Admission/Discharge Info Admit Date/Time Oct 18, 2018 at 23:04 Discharge Date/Time Patient Condition: Good Consults Dr Chavez Procedures CT abdomen pelvis IMPRESSION: 1. Several mesenteric lymph nodes within the left lower abdomen and minimal m esenteric fat stranding, cannot exclude mesenteric panniculitis. 2. Status post cholecystectomy. 3. Status post appendectomy. 4. No evidence of bowel obstruction. Stool filled loops large bowel suggestive of constipation. 5. Mild atherosclerotic disease of the aorta. 6. No renal/ureteric calculi or obstructive uropathy. 7. Bilateral hip replacements. 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 Chest x-ray No acute process Hx of Present Illness 63-year-old female admitted w abd pain Hospital Course Hospitalist Coverage Admitted with abdominal pain. Labs showed moderate anemia. Seen by GI. Underwent EGD. Occult blood was positive. Severe esophagitis seen. Patient is on nonsteroidals for her osteo vs rheumatoid arthritis. She also takes Excedrin for headaches. Presently tolerating a diet, stable and fit for discharge. Off NSAIDS/ needs alternatives. To see GI for egd/ path results in 1 wk. PPI s tarted. Also had headaches. No trigger/ warning signs. No loss of speech/ vision. Occ w Stress at Home. For headaches, I started her on Topamax. s/p Imitrex & Reglan while in hospital. A/P 1. Abdominal pain unknown etiology. Symptomatic gastritis? Stable discharge. 2. Symptomatic anemia? No active bleed at present. Stable observe 3. Grade of esophagitis, gastritis, hemorrhoids on EGD/colonoscopy. Follow-up on biopsy path continue PPI 4. Arthritis; dc nonsteroidals 5. Hemorrhoids S: /7 events noted /8 no further nausea. No abdominal pain. Presently has a headache. No loss speech vision focal deficits. Mild pain no light sensitivity. Updated patient and family 10/22; less nausea/ headaches. tolerating diet. Objective: Vital signs stable PE No pallor/ carotid bruits/ sinus tenderness. Perrl Regular no mrg Clear Benign No edema Home Meds Active Scripts Ibuprofen* (Motrin*) 600 Mg Tab, 600 MG PO Q6, #30 TAB Prov:AMRIT SLATER MD 08/25/18 Hydrocodone/Acetaminophen ([place] 5-325 Tablet) 1 Each Tablet, 1 TAB PO Q6H PRN for PAIN, #14 TAB Prov:AMRIT SLATER MD 08/25/18 Prednisone* (Prednisone*) 20 Mg Tab, 60 MG PO DAILY for 4 Days, TAB Prov:DEVIN MADDOX DO 06/24/18 Albuterol Sulfate* (Proair HFA*) 8.5 Gm Hfa.aer.ad, 2 PUFF INH Q4, #1 INHALER Prov:DEVIN MADDOX DO 06/24/18 Azithromycin* (Zithromax*) 250 Mg Tablet, 250 MG PO .ZPACK DIRECTED, #6 TAB TAKE 500 MG (2 TABS) THE FIRST DAY THEN 250 MG (1 TAB) DAYS 2-5 Prov:DEVIN MADDOX DO 06/24/18 Ondansetron (Ondansetron Odt) 4 Mg Tab.rapdis, 4 MG PO Q6H PRN for NAUSEA AND/OR VOMITING, #10 TAB Prov:DEVIN MADDOX DO 06/24/18 Reported Medications Meloxicam* (Mobic*) 15 Mg Tablet, 15 MG PO DAILY for 30 Days, #30 10/18/18 Etanercept (Enbrel) 50 Mg/1 Ml Pen.injctr, 50 MG SQ Q SUN 06/24/18 Methotrexate* (Methotrexate*) 2.5 Mg Tab, 20 MG PO Q SUN, TAB 06/24/18 Omeprazole* (Omeprazole*) 20 Mg Capsule.dr, 20 MG PO DAILY, #30 CAP 06/24/18 Gabapentin* (Gabapentin*) 300 Mg Capsule, 300 MG PO TID, #90 CAP 06/24/18 Folic Acid* (Folic Acid*) 1 Mg Tablet, 1 MG PO DAILY, TAB 06/24/18 Albuterol Sulfate (Proair Respiclick) 90 Mcg Aer.pow.ba, 2 PUFFS INHALATION Q6, #1 BOTTLE 06/24/18 Fluticasone Propionate* (Fluticasone Propionate* Nasal) 50 Mcg/[place] - 16 Gm [place].susp, 1 SPRAY NASAL BID, #1 BOTTLE TO EACH NOSTRIL 06/24/18 Primary Care Provider Not On Staff Doctor Time spent on discharge: > 30 minutes Pending Labs Laboratory Tests Test 10/22/18 05:44 White Blood Count 7.4 10^3/ul (4.8-10.8) Red Blood Count 4.25 10^6/ul (4.20-5.40) Hemoglobin 9.2 g/dl (12.0-16.0) Hematocrit 30.4 % (37.0-47.0) Mean Corpuscular Volume 71.5 fl (82.0-101.0) Mean Corpuscular Hemoglobin 21.6 pg (29.0-33.0) Mean Corpuscular Hemoglobin Concent 30.3 g/dl (32.0-37.0) Red Cell Distribution Width 20.5 % (11.5-14.5) Platelet Count 301 10^3/UL (140-415) Mean Platelet Volume 10.3 fl (7.4-10.4) Immature Granulocytes % 0.300 % (0.001-0.429) Neutrophils % 48.5 % (39.0-77.0) Lymphocytes % 29.6 % (15.0-51.0) Monocytes % 12.2 % (0.0-11.0) Eosinophils % 9.0 % (0.0-7.0) Basophils % 0.4 % (0.0-2.0) Nucleated Red Blood Cells % 0.0 /100WBC (0.0-0.0) Immature Granulocytes # 0.020 10^3/ul (0.0-0.031) Neutrophils # 3.6 10^3/ul (1.6-7.5) Lymphocytes # 2.2 10^3/ul (0.8-2.9) Monocytes # 0.9 10^3/ul (0.3-0.9) Eosinophils # 0.7 10^3/ul (0.0-0.5) Basophils # 0.0 10^3/ul (0.0-0.1) Nucleated Red Blood Cells # 0.0 10^3/ul (0.0-0.0) Sodium Level 140 mmol/L (135-144) Potassium Level 4.0 mmol/L (3.5-5.1) Chloride Level 108 mmol/L (97-110) Carbon Dioxide Level 25 mmol/L (21-31) Anion Gap 7 (5-13) Blood Urea Nitrogen 10 mg/dl (7-20) Creatinine 0.63 mg/dl (0.44-1.00) Est Glomerular Filtrat Rate mL/min > 60 mL/min (>60) Glucose Level 95 mg/dl (70-220) Calcium Level 9.0 mg/dl (8.4-10.2) STELLA MADRID MD Oct 22, 2018 15:47
[2018-10-22] MEDS ORDERED: TOPI25TA PO (15:49)
[2018-10-22] MEDS ORDERED: CARAS PO (15:49)
[2018-10-22] MEDS ORDERED: OMEP20CA16 PO (15:49)
[2018-10-22] MEDS ORDERED: ACET325T33 PO (15:49)
[2018-10-22] MEDS ORDERED: SUMATRIPTAN 6 MG/0.5 ML INJ SC PRN (16:00)
[2018-10-22] MEDS ORDERED: METOCLOPRAMIDE 10 MG INJ IV ONE (16:00)
[2018-10-22] MEDS ORDERED: TOPIRAMATE 25 MG TAB PO SCH (21:00)
== END 2018-10-22 17:47 | disposition home or self-care (01) | DRG 690 ==
LOC: E/R 18:54 → TEL 23:04
PROVIDERS: ADMIT Hospitalist; ATTEND Internal Medicine
PROC: 30233N1 Transfusion of Nonautologous Red Blood Cells into Peripheral Vein, Percutaneous Approach (ICD-10-PCS; 2018-10-19)
PROC: 0DJD8ZZ Inspection of Lower Intestinal Tract, Via Natural or Artificial Opening Endoscopic (ICD-10-PCS; 2018-10-20)
PROC: 0DB58ZX Excision of Esophagus, Via Natural or Artificial Opening Endoscopic, Diagnostic (ICD-10-PCS; principal; 2018-10-20 16:00)
PROC: 0DB68ZX Excision of Stomach, Via Natural or Artificial Opening Endoscopic, Diagnostic (ICD-10-PCS; 2018-10-20 16:00)
DX: N39.0 Urinary tract infection, site not specified (principal); D62 Acute posthemorrhagic anemia; K22.10 Ulcer of esophagus without bleeding; K29.70 Gastritis, unspecified, without bleeding; K64.8 Other hemorrhoids; Z90.710 Acquired absence of both cervix and uterus; Z90.49 Acquired absence of other specified parts of digestive tract
CPT/HCPCS: 36415; 36430; 71045; 74176; 80048; 80053; 80061; 81001; 82728; 83036; 83540; 83605; 83690; 83735; 84100; 84439; 84443; 85014; 85018; 85025; 85610; 85730; 86850; 86900; 86901; 86920; 87086; 88305; 88312; 88313; 96374; 96375; 97161; C9113; J0696; J1885; J2270; J2405; J2765; J3030; J7030; J7040; P9016

== ENCOUNTER 2018-11-28 14:58 | Emergency (ER) | payer MEDICARE, OTHER ==
[~2018-11-28] VITALS: Ht 154.9 cm; Wt 75.7 kg
[~2018-11-28 14:58] MED LIST changes: +ACET325T33 PO; -AZIT250T PO; +CARAS PO; -HYDR-4011 PO; -IBUP-1542 PO; -PRED20TA PO; +TOPI25TA PO
[2018-11-28 15:05] VITALS: BP 153/80; PULSE 88; RESP 18; Ht 154.9 cm; Wt 75.7 kg
--- NOTE | 2018-11-28 15:28 | EN ---
Date/Time of Note Date/Time of Note DATE: 11/28/18 TIME: 15:27 ER Progress Note EHI-66-gwyg-old female tripped and fell today. She has right foot, ankle and knee pain. She has a previous history of right lateral foot fracture. X-rays ordered from the ED 3. Mild pain in the left knee but primary complaint is right lower extremity. AMRIT SLATER MD Nov 28, 2018 15:28
[2018-11-28] MEDS ORDERED: IBUP-1542 PO (16:27)
--- NOTE | 2018-11-28 16:37 | ERD ---
ER Documentation Chief Complaint Chief Complaint rt foot and knee pain , abrsion on lt knee s/p fall yesterday HPI 63-year-old female presents with right foot pain after tripping and falling today. Patient has a history of right fifth metatarsal base fracture 3 months ago. She denies any head injury, neck injury, additional complications. She has pain primarily in the distal fifth metatarsal area. ROS All systems reviewed and are negative except as per history of present illness. Medications Home Meds Active Scripts Ibuprofen* (Motrin*) 600 Mg Tab, 600 MG PO Q6, #20 TAB Prov:AMRIT SLATER MD 11/28/18 Sucralfate* (Carafate*) 1 Gm/10 Ml Susp, 1 GM PO QID for 10 Days, #20 2 Refills Prov:STELLA MADRID MD 10/22/18 Topiramate* (Topamax*) 25 Mg Tablet, 25 MG PO BID for 14 Days, #30 TAB Prov:STELLA MADRID MD 10/22/18 Acetaminophen* (Tylenol*) 325 Mg Tablet, 650 MG PO Q6H PRN for .PAIN 1-3 OR TEMP for 5 Days, TAB Prov:STELLA MADRID MD 10/22/18 Omeprazole* (Omeprazole*) 20 Mg Capsule.dr, 20 MG PO BID for 30 Days, #30 CAP 1 Refill Prov:STELLA MADRID MD 10/22/18 Albuterol Sulfate* (Proair HFA*) 8.5 Gm Hfa.aer.ad, 2 PUFF INH Q4, #1 INHALER Prov:DEVIN MADDOX DO 06/24/18 Ondansetron (Ondansetron Odt) 4 Mg Tab.rapdis, 4 MG PO Q6H PRN for NAUSEA AND/OR VOMITING, #10 TAB Prov:DEVIN MADDOX DO 06/24/18 Reported Medications Etanercept (Enbrel) 50 Mg/1 Ml Pen.injctr, 50 MG SQ Q SUN 06/24/18 Methotrexate* (Methotrexate*) 2.5 Mg Tab, 20 MG PO Q SUN, TAB 06/24/18 Gabapentin* (Gabapentin*) 300 Mg Capsule, 300 MG PO TID, #90 CAP 06/24/18 Folic Acid* (Folic Acid*) 1 Mg Tablet, 1 MG PO DAILY, TAB 06/24/18 Albuterol Sulfate (Proair Respiclick) 90 Mcg Aer.pow.ba, 2 PUFFS INHALATION Q6, #1 BOTTLE 06/24/18 Fluticasone Propionate* (Fluticasone Propionate* Nasal) 50 Mcg/[place] - 16 Gm [place].susp, 1 SPRAY NASAL BID, #1 BOTTLE TO EACH NOSTRIL 06/24/18 Allergies Allergies: Coded Allergies: ranitidine (Unverified Allergy, Unknown, 10/18/18) PMhx/Soc History of Surgery: No Anesthesia Reaction: No Hx Neurological Disorder: No Hx Respiratory Disorders: No Hx Cardiac Disorders: No Hx Psychiatric Problems: No Hx Miscellaneous Medical Probl: Yes (OA, gastritis and epigastric pain) Hx Alcohol Use: No Hx Substance Use: No Hx Tobacco Use: No Smoking Status: Never smoker FmHx Family History: No diabetes, No coronary disease, No other Physical Exam Vitals Vital Signs Date Temp Pulse Resp B/P (MAP) Pulse Ox O2 O2 Flow FiO2 Time Delivery Rate 11/28/18 98.0 88 18 153/80 96 15:05 (104) Physical Exam Const: No acute distress Head: Atraumatic Eyes: Normal Conjunctiva ENT: Normal External Ears, Nose and Mouth. Neck: Full range of motion. No meningismus. Resp: Clear to auscultation bilaterally Cardio: Regular rate and rhythm, no murmurs Abd: Soft, non tender, non distended. Normal bowel sounds Skin: No petechiae or rashes Back: No midline or flank tenderness Ext: No cyanosis, or edema. Tenderness around the fifth metatarsal mostly distally. No deformities. There is mild swelling and ecchymosis. Mild ankle tenderness and mild anterior knee tenderness without deformities, erythema, warmth, lacerations. Neur: Awake and alert Psych: Normal Mood and Affect Procedures/MDM X-ray Foot 3V Interpreted by me: Bones: Likely chronic fifth metatarsal base fracture. Acute appearing distal fifth metatarsal neck fracture without significant displacement. Joints: No dislocation Foreign body: None impression-likely chronic base of fifth metatarsal fracture with acute appearing fifth metatarsal neck fracture. X-ray right ankle 3V Interpreted by me: Bones: Chronic appearing base of fifth metatarsal fracture Joints: No dislocation Foreign Body: None. No acute fracture identified in right ankle. Chronic appearing fifth metatarsal base fracture. X-ray right knee 3V Interpreted by me: Bones: No fracture Joints: No dislocation Foreign body: None. [id number] right knee x-ray Placed in right lower extremity walker boot and was neurovascular intact after boot. Patient presents with signs and symptoms of an acute right fifth metatarsal neck fracture without signs of infection, ischemia or deficits. She has a chronic appearing right fifth metatarsal base fracture. She will discharged home in a walker boot with recommendations for primary care and orthopedic follow-up and return precautions for fevers, redness, new or worsening symptoms. The patient was stable with no new complaints during the ER course. Clinically, there is no current evidence to suggest meningitis, sepsis, acute abdomen, pneumonia, stroke, acute coronary syndrome, pulmonary embolism, aortic dissection or any other emergent condition appearing to require further evaluation or hospitalization. Patient counseled regarding my diagnostic impression and care plan. Prior to discharge all questions answered. Pt agrees with treatment plan and understands strict return precautions. Pt is instructed to follow up with primary care provider within 24-48 hours. Precautionary instructions provided including instructions to return to the ER if not improving or for any worsening or changing symptoms or concerns. Disclaimer: Inadvertent spelling and grammatical errors are likely due to EHR/dictation software use and do not reflect on the overall quality of patient care. Also, please note that the electronic time recorded on this note does not necessarily reflect the actual time of the patient encounter. Departure Diagnosis: Primary Impression: Injury of foot Encounter type: initial encounter Laterality: right Qualified Codes: S99.921A - Unspecified injury of right foot, initial encounter Condition: Stable Patient Instructions: Contusion, Foot Referrals: DOCTOR,NOT ON STAFF (PCP) ENOC CISNEROS MD Additional Instructions: no hay nueca fractura. puede jose alberto un fractura carlos. Va al akers doctor/ specialista para mas evaluacon en el proximo semana. posiblemente necesita autorizado de akers doctor primario para specialista. Regresa para fiebre, o mas o nueva simptomas. AMRIT SLATER MD Nov 28, 2018 16:37
== END 2018-11-28 16:35 | disposition home or self-care (01) ==
LOC: E/R 14:58
DX: S92.351A Displaced fracture of fifth metatarsal bone, right foot, initial encounter for closed fracture (principal); W01.0XXA Fall on same level from slipping, tripping and stumbling without subsequent striking against object, initial encounter; Y92.9 Unspecified place or not applicable
CPT/HCPCS: 73562; 73630

== ENCOUNTER 2018-12-01 18:06 | Emergency (ER) | payer MEDICARE, OTHER ==
[~2018-12-01] VITALS: Wt 71.0 kg
[~2018-12-01 18:06] MED LIST changes: +IBUP-1542 PO
[2018-12-01] MEDS ORDERED: HYDROCODONE/APAP (5/325) TAB PO ONE (18:30)
[2018-12-01] MEDS ORDERED: SOD CHLORIDE 0.9% 500 ML IV STA (19:35)
[2018-12-01] MEDS ORDERED: ONDANSETRON 4 MG INJ IV STA (19:35)
[2018-12-01] MEDS ORDERED: morphine 2 MG INJ IV STA (19:35)
[2018-12-01] MEDS ORDERED: KETOROLAC 15 MG INJ IV ONE (21:56)
--- NOTE | 2018-12-01 22:21 | ERD ---
ER Documentation Chief Complaint Chief Complaint R SHOULDER PAIN X 3 DAYS HPI This is a very pleasant 63-year-old Beninese-speaking female presents to the emergency department complaining of right shoulder pain for 3 days. The patient had a mechanical slip and fall 3 days ago and landed on cement. She was seen at another ER facility. She was diagnosed with a fracture of her right toe. She indicated that she did not complain of the right shoulder pain initially on her evaluation of the trauma associated said the pain in her right foot was more intense. When she fell she indicated she extended her right arm. She did not hit her head or lose consciousness. She is right-handed dominant. She denies any numbness or tingling of her right upper extremity. She does state it hurts to move the right shoulder. ROS All systems reviewed and are negative except as per history of present illness. Medications Home Meds Active Scripts Ibuprofen* (Motrin*) 600 Mg Tab, 600 MG PO Q6H PRN for PAIN AND OR ELEVATED TEMP, #30 TAB Prov:VIVIANA GROSS MD 12/01/18 Ibuprofen* (Motrin*) 600 Mg Tab, 600 MG PO Q6, #20 TAB Prov:AMRIT SLATER MD 11/28/18 Sucralfate* (Carafate*) 1 Gm/10 Ml Susp, 1 GM PO QID for 10 Days, #20 2 Refills Prov:STELLA MADRID MD 10/22/18 Topiramate* (Topamax*) 25 Mg Tablet, 25 MG PO BID for 14 Days, #30 TAB Prov:STELLA MADRID MD 10/22/18 Acetaminophen* (Tylenol*) 325 Mg Tablet, 650 MG PO Q6H PRN for .PAIN 1-3 OR TEMP for 5 Days, TAB Prov:STELLA MADRID MD 10/22/18 Omeprazole* (Omeprazole*) 20 Mg Capsule.dr, 20 MG PO BID for 30 Days, #30 CAP 1 Refill Prov:STELLA MADRID MD 10/22/18 Albuterol Sulfate* (Proair HFA*) 8.5 Gm Hfa.aer.ad, 2 PUFF INH Q4, #1 INHALER Prov:DEVIN MADDOX DO 06/24/18 Ondansetron (Ondansetron Odt) 4 Mg Tab.rapdis, 4 MG PO Q6H PRN for NAUSEA AND/OR VOMITING, #10 TAB Prov:DEVIN MADDOX DO 06/24/18 Reported Medications Etanercept (Enbrel) 50 Mg/1 Ml Pen.injctr, 50 MG SQ Q SUN 06/24/18 Methotrexate* (Methotrexate*) 2.5 Mg Tab, 20 MG PO Q SUN, TAB 06/24/18 Gabapentin* (Gabapentin*) 300 Mg Capsule, 300 MG PO TID, #90 CAP 06/24/18 Folic Acid* (Folic Acid*) 1 Mg Tablet, 1 MG PO DAILY, TAB 06/24/18 Albuterol Sulfate (Proair Respiclick) 90 Mcg Aer.pow.ba, 2 PUFFS INHALATION Q6, #1 BOTTLE 06/24/18 Fluticasone Propionate* (Fluticasone Propionate* Nasal) 50 Mcg/[place] - 16 Gm [place].susp, 1 SPRAY NASAL BID, #1 BOTTLE TO EACH NOSTRIL 06/24/18 Allergies Allergies: Coded Allergies: ranitidine (Unverified Allergy, Unknown, 10/18/18) PMhx/Soc History of Surgery: Yes (c-sections, bilateral hip repleacements, facial sx, hysterectomy, appendect) Anesthesia Reaction: No Hx Neurological Disorder: No Hx Respiratory Disorders: No Hx Cardiac Disorders: No Hx Psychiatric Problems: No Hx Miscellaneous Medical Probl: Yes (arthitis) Hx Alcohol Use: No Hx Substance Use: No Hx Tobacco Use: No Smoking Status: Never smoker Physical Exam Vitals Vital Signs Date Temp Pulse Resp B/P (MAP) Pulse Ox O2 O2 Flow FiO2 Time Delivery Rate 12/01/18 98.0 74 18 150/77 99 Room Air 21:36 (101) 12/01/18 98.0 79 18 138/84 99 Room Air 19:42 (102) 12/01/18 98.0 88 18 121/71 99 18:09 (88) Physical Exam Constitutional:Well-developed. Well-nourished. HEENT:Normocephalic. Atraumatic.Pupils were equal round reactive to light. Moist mucous membranes.No tonsillar exudates. Respiratory: Not using accessory muscles of respiration.Lungs were clear to auscultation bilaterally. No rhonchi. No rales. No wheezing. Cardiovascular: Regular rate regular rhythm.No murmurs. No rubs were appreciated.S1, S2 normal. Distal pulses are palpable 2+ bilaterally. Muscle skeletal: Patient has tenderness over the right humeral head however patient is able to abduct the right upper extremity to roughly 90 degrees but this exacerbates pain. Normal lie to the right humeral head. Patient is able to touch the left shoulder with the right upper extremity. Patient able flex extend at the right elbow. Handgrip equal and symmetric bilaterally. Skin: No petechia, no purpura. No lesions on the palms or the soles of the feet. No maculopapular rash. NEURO: Patient was alert, awake, orientated x3.No facial droop. Gait observed and normal with no ataxia.Speech had regular rate and rhythm. No focal neurological deficits. Sensation intact to the right radial ulnar and median nerve distribution as well as axillary nerve of the right upper extremity Result Diagram: 12/01/18193912/01/181939 Results 24 hrs Laboratory Tests Test 12/01/18 19:40 White Blood Count 7.2 10^3/ul Red Blood Count 3.83 10^6/ul Hemoglobin 7.8 g/dl Hematocrit 27.0 % Mean Corpuscular Volume 70.5 fl Mean Corpuscular Hemoglobin 20.4 pg Mean Corpuscular Hemoglobin Concent 28.9 g/dl Red Cell Distribution Width 20.0 % Platelet Count 289 10^3/UL Mean Platelet Volume 9.9 fl Immature Granulocytes % 0.300 % Neutrophils % 49.1 % Lymphocytes % 32.2 % Monocytes % 11.5 % Eosinophils % 6.5 % Basophils % 0.4 % Nucleated Red Blood Cells % 0.0 /100WBC Immature Granulocytes # 0.020 10^3/ul Neutrophils # 3.5 10^3/ul Lymphocytes # 2.3 10^3/ul Monocytes # 0.8 10^3/ul Eosinophils # 0.5 10^3/ul Basophils # 0.0 10^3/ul Nucleated Red Blood Cells # 0.0 10^3/ul Prothrombin Time 13.3 Sec Prothrombin Time Ratio 1.0 INR International Normalized Ratio 1.00 Activated Partial Thromboplast Time 29.7 Sec Sodium Level 144 mmol/L Potassium Level 3.8 mmol/L Chloride Level 108 mmol/L Carbon Dioxide Level 25 mmol/L Anion Gap 11 Blood Urea Nitrogen 9 mg/dl Creatinine 0.65 mg/dl Est Glomerular Filtrat Rate mL/min > 60 mL/min Glucose Level 103 mg/dl Calcium Level 9.0 mg/dl Total Bilirubin 0.4 mg/dl Direct Bilirubin 0.40 mg/dl Indirect Bilirubin 0.0 mg/dl Aspartate Amino Transf (AST/SGOT) 35 IU/L Alanine Aminotransferase (ALT/SGPT) 36 IU/L Alkaline Phosphatase 84 IU/L Troponin I < 0.012 ng/ml Total Protein 8.1 g/dl Albumin 4.3 g/dl Globulin 3.80 g/dl Albumin/Globulin Ratio 1.13 Current Medications Medications Dose Sig/Tayla Start Time Status Last (Trade) Ordered Route PRN Stop Time Admin Dose Reason Admin 1 tab ONCE ONCE 12/01/18 DC 12/01/18 Acetaminophen PO 18:30 18:35 / 12/01/18 18:31 Hydrocodone Bitart ([place] (5/325)) Sodium 500 ml @ Q1H STAT 12/01/18 DC 12/01/18 Chloride 500 mls/hr IV 19:35 20:03 12/01/18 20:34 Morphine 2 mg ONCE STAT 12/01/18 DC 12/01/18 Sulfate IV 19:35 19:47 (morphine) 12/01/18 19:36 Ondansetron 4 mg ONCE STAT 12/01/18 DC 12/01/18 HCl (Zofran IV 19:35 19:46 Inj) 12/01/18 19:36 Ketorolac 15 mg ONCE ONCE 12/01/18 DC Tromethamine IV 21:56 (Toradol) 12/01/18 21:57 Procedures/MDM This patient presented to the emergency department with right shoulder injury. Two-view radiograph the right shoulder was ordered and reviewed. Patient appeared to be in a significant amount discomfort. She had IV access established. There is no severe left light abnormalities. Patient received intravenous medication. Shoulder radiograph reviewed by myself the radiologist did not indicate a fracture. The patient did have an inferior subluxation but no fractures or dislocations. She was placed in a sling for immobilization and comfort. She was neurovascularly intact after the spring was placed. I indicated she will need an outpatient orthopedic surgeon to undergo an MRI The patient was discharged home in fair condition. They were instructed to return to the emergency department at any time if there was any worsening of their condition. The patient stated they would follow up with their PCP in the next 24-48 hours to initiate a suitable medication regimen under the care of their PCP as well as to allow their PCP to monitor any drug reactions. The patient was discharged home with prescriptions after they gave informed consent to the new medication. They were also fully informed by myself on the adverse effects and adverse drug interactions in order to provide adequate safeguards to prevent possible adverse reactions to medications. Departure Diagnosis: Primary Impression: Inferior subluxation of humerus Encounter type: initial encounter Laterality: right Qualified Codes: S43.031A - Inferior subluxation of right humerus, initial encounter Condition: VIVIANA Alvarez MD Dec 01, 2018 22:21
[2018-12-01] MEDS ORDERED: IBUP-1542 PO (22:22)
[2018-12-01 23:28] VITALS: BP 132/71; PULSE 70; RESP 18
== END 2018-12-01 23:30 | disposition home or self-care (01) ==
LOC: EDUNIT# 18:06 → FTE 18:06 → E/R 23:30
DX: S43.031A Inferior subluxation of right humerus, initial encounter (principal); W01.0XXA Fall on same level from slipping, tripping and stumbling without subsequent striking against object, initial encounter; Y92.9 Unspecified place or not applicable; Z96.643 Presence of artificial hip joint, bilateral
CPT/HCPCS: 73030; 80053; 84484; 85025; 85610; 85730; 93005; 96374; 96375; 99285; J1885; J2270; J2405; J7040

== ENCOUNTER 2019-01-05 11:56 | Day surgery (SDC) | payer MEDICARE, OTHER ==
[~2019-01-05] VITALS: Ht 152.4 cm; Wt 74.5 kg
[~2019-01-05 11:56] MED LIST changes: +COLACE; +VIT D3
[2019-01-05 13:19] VITALS: Ht 152.4 cm; Wt 74.5 kg
[2019-01-05] MEDS ORDERED: PROPOFOL 20 ML ONE (13:32)
[2019-01-05] MEDS ORDERED: LIDOCAINE 100 MG SYRINGE ONE (13:32)
== END 2019-01-05 16:03 | disposition home or self-care (01) ==
LOC: GIL 11:56
PROVIDERS: ATTEND Internal Medicine Gastroenterology
DX: K29.50 Unspecified chronic gastritis without bleeding (principal); K31.9 Disease of stomach and duodenum, unspecified; K20.9 Esophagitis, unspecified; J45.909 Unspecified asthma, uncomplicated
CPT/HCPCS: 88305; 88312; J2001